=== PATIENT | female | born 1955 | race Caucasian/White ===

== ENCOUNTER 2018-07-28 14:47 | Outpatient (CLI) | payer OTHER | END 2018-07-28 14:48 | disposition home or self-care (01) | LOC: BICMAMMO 14:47 | PROVIDERS: ATTEND Obstetrics & Gynecology Gynecologic Oncology | DX: Z12.31 Encounter for screening mammogram for malignant neoplasm of breast (principal); Z80.3 Family history of malignant neoplasm of breast; Z85.42 Personal history of malignant neoplasm of other parts of uterus | CPT/HCPCS: 77063; 77067 ==

== ENCOUNTER 2018-08-06 09:32 | Outpatient (CLI) | payer OTHER ==
--- NOTE | 2018-08-06 11:34 | RAD ---
CHEST PA AND LATERAL: HISTORY: A 63-year-old female with a history of malignant neoplasm of the endometrium, cough. FINDINGS: The heart size is normal. The lungs are clear. No pneumonia, edema, or pleural effusion. IMPRESSION: No acute intrathoracic disease. No evidence for pneumonia. POS: [facility]
--- NOTE | 2018-08-06 11:35 | RAD ---
SKULL 4 VIEWS: HISTORY: A 63-year-old female with a history of skull deformity. FINDINGS: No evidence of an obvious osseous calvarial mass. The sella turcica is normal. The pineal gland is not adequately calcified for midline determination. IMPRESSION: Unremarkable 4 views skull. If there is persistent clinical concern, particularly for some type of p alpable finding, a followup CT scan might be considered. POS: [facility]
== END 2018-08-06 09:33 | disposition home or self-care (01) ==
LOC: BICRAD 09:32
PROVIDERS: ATTEND Obstetrics & Gynecology Gynecologic Oncology
DX: C54.1 Malignant neoplasm of endometrium (principal); M95.2 Other acquired deformity of head
CPT/HCPCS: 70260; 71046

== ENCOUNTER 2018-09-30 14:20 | Outpatient (CLI) | payer OTHER ==
--- NOTE | 2018-09-30 17:42 | CT ---
CT CHEST WITH IV CONTRAST CT ABDOMEN AND PELVIS WITH IV AND ORAL CONTRAST 09/30/18 HISTORY: Endometrial neoplasm. Increasing tumor markers. Neck pain and swelling. FINDINGS: At the left neck base, a lobular homogeneous soft tissue density mass just lateral to the left thyroi d lobe and posterior to the left internal jugular vein extend inferior to the medial left clavicle. The mass is 4.0 cm length x 3.5 cm depth. No other enlarged lymph nodes of the mediastinum are eviden t. At the liver dome, a heterogeneous low density mass is 2.9 cm oblique diameter on the coronal refo rmatted images. A the lexi hepatis, just above the pancreatic head, a somewhat ill-defined heterogen eous soft tissue density mass is 5.9 cm length x 3.5 cm width and involves the anterior margin of the inferior vena cava and posterior margin of the main portal vein. Enlarged lymph nodes are present th roughout the retroperitoneum, measuring up to 3.3 cm length just below the level of the left renal ve in. Enlarged aortocaval lymph nodes are present. Urinary bladder is decompressed. Degenerative change s lumbar spine. IMPRESSION: Multifocal metastatic disease involving the liver dome, the left lower neck, and the retroperitoneum as detailed above. For percutaneous biopsy, the left neck mass would be most accessible. POS: [facility]
== END 2018-09-30 14:21 | disposition home or self-care (01) ==
LOC: BICCT 14:20
DX: C54.1 Malignant neoplasm of endometrium (principal); C78.7 Secondary malignant neoplasm of liver and intrahepatic bile duct; C78.6 Secondary malignant neoplasm of retroperitoneum and peritoneum; C77.0 Secondary and unspecified malignant neoplasm of lymph nodes of head, face and neck
CPT/HCPCS: 71260; 74177; 82565

== ENCOUNTER 2018-10-19 16:02 | Emergency (ER) | payer OTHER ==
[2018-10-19 16:42] LABS: #Basophils 0.1 thou/uL (0.0-0.2); #Eosinphils 0.3 thou/uL (0.0-0.7); #Lymphocytes 2.8 thou/uL (1.20-3.40); #Monocytes 0.8 thou/uL (0.11-0.59); #Neutrophils 9.4 thou/uL (1.40-6.50); %Basophils 0.8 % (0.0-1.0); %Eosinophils 2.5 % (0.0-10.0); %Lymphocytes 20.8 % (21.0-51.0); %Monocytes 5.6 % (0.0-10.0); %Neutrophils 70.3 % (42.0-75.0); Hemoglobin 10.9 g/dL (12.0-16.0); Mean Corpuscular HGB CONC 31.2 g/dL (32.0-36.0); Mean Corpuscular Hemoglobin 25.7 pg (27.0-31.0); Mean Corpuscular Volume 82.4 fL (78.0-98.0); Mean Platelet Volume 8.6 fL (7.4-10.4); Platelet Count 473 thou/uL (130-400); RBC Distribution Width 14.2 % (11.5-14.5); Red Blood Cell (RBC) Count 4.23 mill/uL (4.20-5.40); White Blood Cell (WBC) Count 13.4 thou/uL (4.8-10.8)
[2018-10-19 17:09] LABS: ALT (SGPT) 10 U/L (8-55); AST (SGOT) 12 U/L (5-34); Albumin 3.9 g/dL (3.4-4.8); Alkaline Phosphatase 83 U/L (40-150); Anion Gap 18 mmol/L (10-20); BUN (Urea Nitrogen) 12 mg/dL (9.8-20.1); Bilirubin, Total 0.5 mg/dL (0.2-1.2); Calc. Creatinine Clearance 0 mL/min (70-130); Calcium 10.3 mg/dL (7.8-10.44); Carbon Dioxide 19 mmol/L (23-31); Chloride 101 mmol/L (98-107); Estimated GFR-MDRD 75; Globulin 4.6 g/dL (2.4-3.5); Glucose 222 mg/dL (80-115); Potassium 4.6 mmol/L (3.5-5.1); Protein, Total 8.5 g/dL (6.0-8.3); Sodium 133 mmol/L (136-145)
[2018-10-19] MEDS ORDERED: Ketorolac Tromethamine 30 MG/ML VIAL ONE (17:24)
[2018-10-19] MEDS ORDERED: Morphine 4 MG/ML VIAL ONE (17:24)
--- NOTE | 2018-10-19 18:16 | CT ---
CT ABDOMEN AND PELVIS WITH IV CONTRAST: 10/19/2018 HISTORY: Malignant neoplasm of the endometrium. History of hysterectomy and radiation. The patient has had l ower abdominal pain since one day ago. COMPARISON: 09/30/2018 FINDINGS: The visualized lung bases demonstrate minimal dependent atelectasis. No pulmonary nodular mass is se en. As noted on prior exam, there is a heterogeneous mass seen at the dome of the liver, which measures a pproximately 3.5 cm. Again noted at the lexi hepatis is an ill-defined, heterogeneous mass, again measuring 5.9 cm in gre atest dimensions. This mass abuts the anterior margin of the IVC and the posterior margin of the por tete vein and also abuts the pancreas, resulting in slight mass effect on the vascular structures in t his region. The portal vein is patent. Aortocaval lymph nodes are again seen with several enlarged lymph nodes seen at the level of the raulito l veins, with the largest lymph node seen in a retrocaval location, measuring approximately 1.9 cm. Additional mildly enlarged lymph nodes are seen in an aortocaval location, which are increased _. The spleen, bilateral adrenal glands, kidneys, and urinary bladder demonstrate a normal CT appearance . The uterus is not visualized, related to a prior hysterectomy. No free fluid or fluid collection is seen in the abdomen or pelvis. Loops of small bowel are normal in caliber. The appendix is normal in caliber. Degenerative changes are seen in the spine. There has been no interval change from the prior exam. IMPRESSION: 1. Metastatic disease with a mass in the dome of the liver, mass in the lexi hepatis, as well as ao rtocaval lymphadenopathy. 2. Hysterectomy. 3. CT abdomen and pelvis is stable compared to prior study on 09/30/2018. POS: [facility]
== END 2018-10-19 20:49 | disposition home or self-care (01) ==
LOC: ERS 16:02
DX: R10.31 Right lower quadrant pain (principal); Z79.899 Other long term (current) drug therapy
CPT/HCPCS: 74177; 80053; 83690; 85025; 93005; 96361; 96374; 96375; J1885; J2270

== ENCOUNTER 2018-10-23 13:19 | Emergency (ER) | payer OTHER ==
--- NOTE | 2018-10-23 15:59 | RAD ---
ONE VIEW CHEST AND 2 VIEWS ABDOMEN: HISTORY: Last bowel movement 1 week ago. FINDINGS: ONE VIEW CHEST: Normal cardiac silhouette. The lungs and pleural spaces are clear. No pneumothorax or osseous abnor malities. TWO VIEWS ABDOMEN: Nonspecific bowel gas pattern. There is some fecal material throughout the colon. No definite radio graphic evidence of constipation. No evidence of bowel distention or dilatation. No differential ai r fluid levels. No pneumoperitoneum. There appears to be pseudoarthrosis of the left and right L5 alae with the sacrum. IMPRESSION: 1. No acute cardiopulmonary process. 2. Nonspecific bowel gas pattern. POS: [facility]
[2018-10-23] MEDS ORDERED: Lidocaine Viscous Sol 2% 15 ml UD Cup ONE (16:48)
== END 2018-10-23 19:24 | disposition home or self-care (01) ==
LOC: ERS 13:19
DX: K59.00 Constipation, unspecified (principal); E11.9 Type 2 diabetes mellitus without complications; I10 Essential (primary) hypertension
CPT/HCPCS: 74022

== ENCOUNTER 2018-11-05 12:09 | Day surgery (SDC) | payer OTHER ==
[2018-11-04 15:12] VITALS: BMI 30.7
[2018-11-05] MEDS ORDERED: Lidocaine 1% PF 5 ML VIAL ONE (12:36)
[2018-11-05 13:15] VITALS: BP 126/56; TEMP 98.2
--- NOTE | 2018-11-05 15:59 | ULT ---
SONOGRAPHIC GUIDED LEFT NECK MASS BIOPSY: HISTORY: Endometrial carcinoma. Metastatic disease. Left neck mass. FINDINGS: After explaining the procedure and answering all questions, the lobular soft tissue density mass at t he base of the left neck was visualized. Sterile technique, buffered local anesthesia, sonographic g uidance, and a lateral approach were used to carefully advance an 18 gauge core biopsy needle to the level of the mass. Two core biopsy specimens were obtained and sent to pathology for evaluation. Po stprocedure imaging shows no evidence of complication. The patient tolerated the procedure well and was dismissed in good condition. IMPRESSION: Technically successful sonographic-guided biopsy left neck mass. Pathology is pending. POS: [facility]
== END 2018-11-05 14:00 | disposition home or self-care (01) ==
LOC: ULT 12:09
PROVIDERS: ATTEND Obstetrics & Gynecology Gynecologic Oncology
PROC: 07D23ZX Extraction of Left Neck Lymphatic, Percutaneous Approach, Diagnostic (ICD-10-PCS; principal; 2018-11-05)
DX: C77.0 Secondary and unspecified malignant neoplasm of lymph nodes of head, face and neck (principal); C54.1 Malignant neoplasm of endometrium; Z79.84 Long term (current) use of oral hypoglycemic drugs; Z79.899 Other long term (current) drug therapy
CPT/HCPCS: 38505; 88305; 88341; 88342; 88360; J2001

== ENCOUNTER 2018-11-23 13:41 | Outpatient (CLI) | payer OTHER ==
--- NOTE | 2018-11-23 15:52 | ULT ---
LEFT UPPER EXTREMITY VENOUS ULTRASOUND: Date: 11/23/18 HISTORY: Left upper extremity swelling. History of uterine cancer. TECHNIQUE: Multiplanar Garcia scale and color Doppler images were obtained in a left upper extremity venous ultras ound. Spectral analysis of the Doppler waveforms were performed. FINDINGS: There is a very large lymph node in the left neck, which was seen during the examination. This measur es 4.3 cm in greatest dimension. The left internal jugular vein was difficult to visualize. Adjacent to the carotid artery, there was a heterogeneous region which was in the region of the internal jugular vein. This likely represents t hrombus within the left internal jugular vein. A small amount of flow was seen in this region. The le ft subclavian vein also demonstrated visible thrombus. The left axillary and brachial veins show no e vidence of visualized thrombus and have normal flow. The basilic and cephalic veins show no obvious t hrombus. IMPRESSION: 1. Left IJ and subclavian vein deep venous thrombosis. 2. Large left lower cervical lymph node. POS: [facility]
== END 2018-11-23 13:42 | disposition home or self-care (01) ==
LOC: BICULT 13:41
PROVIDERS: ATTEND Surgery
DX: M79.89 Other specified soft tissue disorders (principal); I82.622 Acute embolism and thrombosis of deep veins of left upper extremity

== ENCOUNTER 2018-12-08 07:07 | Day surgery (SDC) | payer OTHER ==
[2018-12-03 10:02] VITALS: BMI 45.8
[2018-12-08 08:39] LABS: #Basophils 0.1 thou/uL (0.0-0.2); #Eosinphils 0.1 thou/uL (0.0-0.7); #Lymphocytes 4.1 thou/uL (1.20-3.40); #Monocytes 0.8 thou/uL (0.11-0.59); #Neutrophils 8.9 thou/uL (1.40-6.50); %Basophils 0.5 % (0.0-1.0); %Eosinophils 0.5 % (0.0-10.0); %Lymphocytes 29.1 % (21.0-51.0); %Neutrophils 63.9 % (42.0-75.0); Hemoglobin 9.9 g/dL (12.0-16.0); Mean Corpuscular Hemoglobin 26.6 pg (27.0-31.0); Mean Corpuscular Volume 82.9 fL (78.0-98.0); Mean Platelet Volume 7.8 fL (7.4-10.4); Platelet Count 423 thou/uL (130-400); RBC Distribution Width 15.8 % (11.5-14.5); Red Blood Cell (RBC) Count 3.74 mill/uL (4.20-5.40)
[2018-12-08 09:05] LABS: Anion Gap 19 mmol/L (10-20); BUN (Urea Nitrogen) 11 mg/dL (9.8-20.1); Calc. Creatinine Clearance 125 mL/min (70-130); Calcium 10.2 mg/dL (7.8-10.44); Carbon Dioxide 18 mmol/L (23-31); Chloride 102 mmol/L (98-107); Estimated GFR-MDRD 65; Glucose 197 mg/dL (80-115); Sodium 135 mmol/L (136-145)
[2018-12-08] MEDS ORDERED: Fentanyl 100 MCG/2 ML VIAL ONE (09:33)
[2018-12-08] MEDS ORDERED: PROPOFOL 40 ML ONE (09:33)
[2018-12-08] MEDS ORDERED: Lidocaine 2% PF 5 ML VIAL ONE ×2 (09:40)
[2018-12-08] MEDS ORDERED: Bupivacaine HCl 0.5%/Epinephrine 1:200,000/PF 30 ml Vial ONE (09:40)
[2018-12-08] MEDS ORDERED: Lidocaine 2% 11 ML SYR ONE (09:40)
--- NOTE | 2018-12-08 14:00 | RAD ---
CHEST ONE VIEW: HISTORY: Mediport placement. COMPARISON: Chest radiograph from October 2018. FINDINGS: A right IJ Port-A-Cath is in place with the tip at the mid SVC. No pneumothorax. The lungs are bobby r. The cardiac silhouette and mediastinal contours are within normal limits. IMPRESSION: Uncomplicated placement of port catheter. POS: [facility]
[2018-12-08] MEDS ORDERED: Lidocaine 1% PF 5 ML VIAL ONE (14:29)
[2018-12-08] MEDS ORDERED: PROPOFOL 200 MG/20 ML VIAL ONE (14:29)
[2018-12-08] MEDS ORDERED: Ondansetron PF 4 MG/2 ML Vial ONE (14:29)
--- NOTE | 2018-12-11 15:24 | PDOC.OP ---
Operative Note - Operative Note Operative Note: PROCEDURE: Right internal jugular MediPort placement with ultrasound and fluoroscopic guidance SURGEON: Venessa Shen M.D. DATE OF PROCEDURE: 12/11/2018 PREOPERATIVE DIAGNOSIS: Metastatic uterine cancer POSTOPERATIVE DIAGNOSIS: Metastatic uterine cancer HISTORY: Patient is diagnosed with metastatic uterine cancer. Chemotherapy has been recommended and the oncologist has requested MediPort placement for this. OPERATIVE PROCEDURE IN DETAIL: After informed consent was obtained and appropriate preoperative antibiotics were administered, the patient was taken to the operating room and placed in supine position and monitored anesthesia care was administered. The patient was then placed in Trendelenburg position and the right internal jugular vein was identified using a sterile ultrasound probe. This was accessed easily on the first attempt with excellent flow of dark venous non-pulsatile blood. A wire threaded easily and was confirmed to be in the superior vena cava by fluoroscopy. Additional local anesthesia was infused to the skin and subcutaneous tissues of the right chest and neck. A skin incision was made over the right pectoral muscle and a subcutaneous pocket developed inferiorly. A Mediport was obtained and confirmed to fit in the subcutaneous pocket. This was secured inferiorly to the pectoralis fascia with a Prolene suture, which was clamped, but not tied. The tubing was tunneled from the right chest incision to the right IJ access site. The dilator and sheath were then placed over the wire and the dilator and wire removed leaving the sheath in place. The clamped MediPort tubing was tunneled through the sheath, which was then split and removed leaving the MediPort tubing in place. The tubing was adjusted until the tip was confirmed by fluoroscopy to be in the superior vena cava just above the atrium. The tubing was clamped at the skin level and cut and the tubing secured to the port, which was then placed in the subcutaneous pocket. The previously placed suture was secured and two additional sutures were placed to fix the port in place within the pocket. The port was aspirated with the Trivedi needle and had excellent flow of dark venous non-pulsatile blood and easily flushed without resistance. The subcutaneous tissues were closed with a running Monocryl suture, following which the skin was closed with a running subcuticular Monocryl suture. Dermabond dressings were placed and the hub was again accessed through the skin and confirmed to easily aspirate and easily flush. The course of the catheter was confirmed by fluoroscopy to be smooth with the tip appropriately located in the superior vena cava. The patient was taken her back to the day stay unit in good condition. Estimated blood loss minimal. There were no complications. There were no specimens.
== END 2018-12-08 12:00 | disposition home or self-care (01) ==
LOC: SDC 07:07
PROVIDERS: ATTEND Surgery
PROC: 0JH63WZ Insertion of Totally Implantable Vascular Access Device into Chest Subcutaneous Tissue and Fascia, Percutaneous Approach (ICD-10-PCS; principal; 2018-12-08)
DX: C54.1 Malignant neoplasm of endometrium (principal); C77.0 Secondary and unspecified malignant neoplasm of lymph nodes of head, face and neck; C78.6 Secondary malignant neoplasm of retroperitoneum and peritoneum; C78.7 Secondary malignant neoplasm of liver and intrahepatic bile duct; E78.00 Pure hypercholesterolemia, unspecified; I10 Essential (primary) hypertension; E11.9 Type 2 diabetes mellitus without complications; Z79.01 Long term (current) use of anticoagulants; Z79.84 Long term (current) use of oral hypoglycemic drugs; Z79.899 Other long term (current) drug therapy
CPT/HCPCS: 36415; 71045; 80048; 85025; C1788; J0670; J1642; J2001; J2405; J2704; J3010

== ENCOUNTER 2018-12-12 19:48 | Emergency (ER) | payer OTHER ==
--- NOTE | 2018-12-12 20:34 | RAD ---
CHEST ONE VIEW: 12/12/18 COMPARISON: 12/08/18. HISTORY: Tachycardia. FINDINGS: Stable right sided Mediport catheter. Normal cardiac silhouette. Pulmonary vessels and hilum are norm al. Costophrenic angles are clear. No masses or consolidation. No pneumothorax or osseous abnormaliti es. IMPRESSION: No acute cardiopulmonary process. POS: [facility]
[2018-12-12 21:07] LABS: ALT (SGPT) 17 U/L (8-55); AST (SGOT) 15 U/L (5-34); Albumin 3.8 g/dL (3.4-4.8); Alkaline Phosphatase 117 U/L (40-150); Anion Gap 16 mmol/L (10-20); BUN (Urea Nitrogen) 21 mg/dL (9.8-20.1); Bilirubin, Total 0.5 mg/dL (0.2-1.2); CK (CPK) 26 U/L (29-168); Calc. Creatinine Clearance 0 mL/min (70-130); Calcium 9.8 mg/dL (7.8-10.44); Carbon Dioxide 20 mmol/L (23-31); Chloride 98 mmol/L (98-107); Estimated GFR-MDRD 55; Globulin 3.9 g/dL (2.4-3.5); Glucose 344 mg/dL (80-115); Potassium 3.7 mmol/L (3.5-5.1); Protein, Total 7.7 g/dL (6.0-8.3); Sodium 130 mmol/L (136-145)
== END 2018-12-13 00:11 | disposition home or self-care (01) ==
LOC: ERS 19:48
DX: E86.0 Dehydration (principal); T45.1X5A Adverse effect of antineoplastic and immunosuppressive drugs, initial encounter; C55 Malignant neoplasm of uterus, part unspecified; E11.9 Type 2 diabetes mellitus without complications; I10 Essential (primary) hypertension; Z79.899 Other long term (current) drug therapy; Z79.01 Long term (current) use of anticoagulants
CPT/HCPCS: 71045; 80053; 82550; 84484; 93005; 94760; 96360; J1642

== ENCOUNTER 2019-01-17 09:34 | Observation (INO) | payer OTHER ==
[2019-01-17] MEDS ORDERED: Adacel (T-DAP) 0.5 ML SYRINGE ONE (09:56)
--- NOTE | 2019-01-17 10:37 | RAD ---
AP PELVIS: Date: 01/17/19 HISTORY: Fall with pelvic pain. FINDINGS: Pelvic ring is intact, without evidence of fracture. There is an avulsive type fracture of the greate r trochanter. I do not see a femoral neck or intertrochanteric fracture. Left hip is normal. IMPRESSION: Avulsion fracture of the greater trochanter of the right hip. POS: [facility]
--- NOTE | 2019-01-17 10:41 | RAD ---
RIGHT HIP 2 VIEWS: Date: 01/17/19 HISTORY: Fall in tub. FINDINGS: There is a fracture of the greater trochanter of the right hip. This appears to be an avulsive injury . I do not see a definite intertrochanteric or femoral neck fracture. IMPRESSION: Avulsion fracture of greater trochanter of the right hip. I do not see a definitive intertrochanteric fracture, although there is some subtle sclerosis extending in the intertrochanteric region, and for this reason, I would recommend a CT for more complete assessment to exclude the possibility of an as sociated intertrochanteric fracture. POS: [facility]
[2019-01-17] MEDS ORDERED: Ondansetron PF 4 MG/2 ML Vial ONE (10:47)
[2019-01-17] MEDS ORDERED: Morphine 4 MG/ML VIAL ONE (10:47)
[2019-01-17 10:54] LABS: #Lymphocytes 1.8 thou/uL (1.20-3.40); #Monocytes 0.6 thou/uL (0.11-0.59); #Neutrophils 7.6 thou/uL (1.40-6.50); %Basophils 0.4 % (0.0-1.0); %Eosinophils 0.4 % (0.0-10.0); %Lymphocytes 18.2 % (21.0-51.0); %Monocytes 5.9 % (0.0-10.0); %Neutrophils 75.1 % (42.0-75.0); Hemoglobin 9.1 g/dL (12.0-16.0); Mean Corpuscular HGB CONC 33.3 g/dL (32.0-36.0); Mean Corpuscular Hemoglobin 29.5 pg (27.0-31.0); Mean Corpuscular Volume 88.4 fL (78.0-98.0); Mean Platelet Volume 8.2 fL (7.4-10.4); Platelet Count 279 thou/uL (130-400); RBC Distribution Width 18.9 % (11.5-14.5); Red Blood Cell (RBC) Count 3.08 mill/uL (4.20-5.40); White Blood Cell (WBC) Count 10.1 thou/uL (4.8-10.8)
[2019-01-17 11:07] LABS: INR-International Normal Ratio 1.5; PTT 36.8 SEC (22.9-36.1); Prothrombin Time 17.8 SEC (12.0-14.7)
[2019-01-17 11:14] LABS: AST (SGOT) 17 U/L (5-34); Albumin 3.8 g/dL (3.4-4.8); Alkaline Phosphatase 85 U/L (40-150); Anion Gap 14 mmol/L (10-20); BUN (Urea Nitrogen) 11 mg/dL (9.8-20.1); Bilirubin, Total 0.5 mg/dL (0.2-1.2); Calc. Creatinine Clearance 0 mL/min (70-130); Calcium 10.1 mg/dL (7.8-10.44); Carbon Dioxide 20 mmol/L (23-31); Chloride 102 mmol/L (98-107); Estimated GFR-MDRD 71; Globulin 3.8 g/dL (2.4-3.5); Glucose 202 mg/dL (80-115); Potassium 4.3 mmol/L (3.5-5.1); Protein, Total 7.6 g/dL (6.0-8.3); Sodium 132 mmol/L (136-145)
[2019-01-17 11:15] LABS: ALT (SGPT) 17 U/L (8-55); Anisocytosis SLIGHT = 6-15 cells (100X) (0-5/hpf); MDiff Complete? YES
[2019-01-17] MEDS ORDERED: Ondansetron ODT 4 MG TAB SL PRN (17:40)
[2019-01-17] MEDS ORDERED: Ondansetron PF 4 MG/2 ML Vial IVP PRN (17:40)
[2019-01-17] MEDS: Morphine 4 MG/ML VIAL SLOW IVP PRN ×2 (18:23→23:20)
[2019-01-17] MEDS: HYDROcodone/Acetaminophen 7.5/325 mg Tablet PO PRN (20:41)
[2019-01-17] MEDS: Sodium Chloride 0.9% 1,000 ML IV SCH (20:46)
[2019-01-17 20:58] VITALS: BMI 28.8
--- NOTE | 2019-01-17 22:33 | HP ---
CHIEF COMPLAINT: Right hip pain. HISTORY OF PRESENT ILLNESS: Ms. Louis is a 63-year-old female who slipped and fell in the shower this morning. Denies hitting her head or any loss of consciousness. The patient states that she was unable to ambulate out of the shower. Reports having right hip pain. Denies neck or back pain. Denies having any shortness of breath, dizziness, or chest pain prior to fall. EMS gave her 2 mg of morphine, which helped. She also did have a laceration to her right elbow, but no other significant pain to the right arm. On x-ray of the hip, it showed an avulsion fracture of the greater trochanter of the right hip. Radiologist recommended a CT scan, which was performed and verified the avulsion type fracture of the greater trochanter on the right hip. Orthopedics was consulted and it is nonsurgical and stated the patient could go home if able to ambulate, which she was not. Inpatient rehab was considered, they were contacted, but state they could not admit her today, so she will be admitted to the observation unit for pain control and rehab assessment. PAST MEDICAL HISTORY: Pertinent for uterine cancer with metastasis. She had surgery to remove, hysterectomy initially multiple years ago and then in 08/2018 it showed up in her liver and she has started chemotherapy. The last chemotherapy was [address] Melendez is her oncologist. Also has a history of diabetes type 2 and hypertension. PAST SURGICAL HISTORY: Hysterectomy and has had D and C in the past. PSYCHIATRIC HISTORY: None. SOCIAL HISTORY: The patient denies any alcohol or drug use. Has no smoking history. ALLERGIES: NONE. CURRENT MEDICATIONS: 1. Januvia 100 mg p.o. daily. 2. Glimepiride 8 mg once a day. 3. Megace 40 mg b.i.d. 4. Claritin 10 mg once a day. 5. Amlodipine 5 mg once a day. 6. Colace 100 mg three times a day. 7. Multivitamin 1 tablet daily. 8. Pepcid 20 mg once a day. 9. Atorvastatin 40 mg once a day. 10. Xarelto 20 mg b.i.d. REVIEW OF SYSTEMS: The patient does report pain to right hip. Reports some mild throbbing to right elbow. Does have a laceration to the right elbow. All other systems reviewed and are negative unless mentioned in the HPI. PHYSICAL EXAMINATION: VITAL SIGNS: Blood pressure 136/67, pulse is 104, respirations 16, temperature is 98.8, and pulse ox is 96% on room air. Pain currently is at 2/10. CONSTITUTIONAL: The patient appears in no distress, is alert and oriented to person, place, and time. HEENT: Head is atraumatic and normocephalic. Eyelids are normal to inspection. Pupils are equally round and reactive to light. Extraocular muscles are intact. ENT; mouth exam is normal. Mucous membranes are moist. NECK: Normal range of motion. Trachea is midline. RESPIRATOR/CHEST: Breath sounds are clear. No findings of any respiratory distress. CARDIOVASCULAR: Regular heart rate and rhythm. Heart sounds are normal. ABDOMEN: Nontender. Bowel sounds are heard. BACK: Normal inspection. Normal range of motion. EXTREMITIES: Upper extremity; 1.5 superficial linear laceration to right posterior elbow. Normal range of motion. Motor strength is normal. Sensation intact. Radial pulses are equal bilaterally. Lower extremity; right hip tenderness especially over greater right trochanter. No shortening or external/internal rotation of the right leg. Range of motion is limited to pain from pain on the right leg. Motor strength is normal. Sensation intact. Pedal pulses are equal bilaterally. NEUROLOGIC: The patient is oriented to person, place, and time. No focal motor or sensory deficits. SKIN: Dry, normal in color. There is a laceration to right elbow as described above. PSYCHIATRIC: The patient has a normal affect. IMAGING STUDIES: EKG in the ER shows a normal sinus rhythm, beats per minute 89, conduction normal, ST segments normal, and T-waves are normal. RADIOLOGY INTERPRETATION: Pelvis CT shows an avulsion type fracture of the greater trochanter on the right hip. Hip x-ray shows same as above. PERTINENT LABORATORY DATA: White blood cell count is 10.1, hemoglobin is 9.1, hematocrit is 27.2, and platelet count is 279. PT is 17.8, INR is 1.5, and APTT is 36.8. Sodium is 132, potassium 4.3, chloride is 102, carbon dioxide 20, gap is 14, BUN is 11, creatinine is 0.81, estimated GFR is 71, and glucose is 202. Liver enzymes are unremarkable. ASSESSMENT AND PLAN: 1. Avulsion type fracture to right greater trochanter, which is inoperable per Orthopedics. We will have PT/OT assess rehab screening, ordered medication for pain, any nausea. 2. Diabetes. We will restart home medication. Add a sliding scale and Accu-Cheks before meals and at bedtime. 3. Hypertension. We will continue home medications. We will trend. 4. Chronic anticoagulation. We will restart home medication. 5. Deep venous thrombosis and gastrointestinal prophylaxis will be started. Job ID: [id number]
[2019-01-17] MEDS ORDERED: Amlodipine 5 MG TAB PO SCH (23:00)
[2019-01-17] MEDS ORDERED: Polyethylene Glycol 3350 17 GM Packet PO SCH (23:00)
[2019-01-17] MEDS ORDERED: Atorvastatin Calcium 40 MG TAB PO SCH (23:00)
[2019-01-17] MEDS ORDERED: Dextrose 5% in Water 1,000 ML IV PRN (23:47)
[2019-01-17] MEDS ORDERED: Dextrose 50% Abboject 50 ML SYRINGE SLOW IVP PRN (23:47)
[2019-01-18] MEDS: Sodium Chloride 0.9% 1,000 ML IV SCH (02:37)
[2019-01-18] MEDS: HYDROcodone/Acetaminophen 7.5/325 mg Tablet PO PRN ×3 (04:26→19:05)
[2019-01-18] MEDS: HumaLOG 300 UNITS/3 ML VIAL SC PRN ×3 (05:39→16:36)
[2019-01-18] MEDS: Famotidine 20 MG TAB PO SCH (08:17)
[2019-01-18] MEDS: Docusate 100 MG CAP PO SCH (08:17)
[2019-01-18] MEDS: Rivaroxaban 15 MG TAB PO SCH (08:17)
[2019-01-18] MEDS: Glimepiride 4 MG TAB PO SCH (08:18)
--- NOTE | 2019-01-18 09:48 | PDOC.PN ---
- Subjective Encounter Start Date: 01/18/19 Encounter Start Time: 09:47 Patient lying in bed, she reports pain controlled at the moment. She is in agreement with rehab disposition. She denies chest pain, shortness of breath or abdominal pain. She denies BM, but she continues on bowel regimen. - Objective MAR Reviewed: Yes Vital Signs & Weight: Vital Signs (12 hours) Temp Pulse Resp BP BP Pulse Ox 01/18/19 07:36 97.7 F 113 H 18 145/79 H 98 01/18/19 05:35 97.8 F 99 20 136/82 96 01/17/19 23:28 97.7 F 96 12 133/75 98 01/17/19 23:20 90 128/76 Weight Weight 168 lb 3 oz Result Diagrams: 01/17/19 10:41 01/17/19 10:41 Additional Labs: Accuchecks 01/18/19 01/17/19 05:37 19:58 POC Glucose 190 H 219 H Radiology Reviewed by me: Yes Phys Exam - Physical Examination Constitutional: NAD HEENT: PERRLA, moist MMs, oral pharynx no lesions Neck: supple Respiratory: no wheezing, clear to auscultation bilateral Cardiovascular: RRR, no significant murmur Gastrointestinal: soft, non-tender, no distention, positive bowel sounds Musculoskeletal: no edema, pulses present Tenderness to palpation over right hip, dressing applied to right elbow Neurological: non-focal, moves all 4 limbs Lymphatic: no nodes Psychiatric: normal affect, A&O x 3 Skin: no rash, cap refill <2 seconds Dx/Plan (1) Closed avulsion fracture of greater trochanter of right femur Code(s): S72.111A - DISP FX OF GREATER TROCHANTER OF RIGHT FEMUR, INIT Status : Acute (2) Diabetes mellitus Code(s): E11.9 - TYPE 2 DIABETES MELLITUS WITHOUT COMPLICATIONS Status: Acute (3) Hypertension Code(s): I10 - ESSENTIAL (PRIMARY) HYPERTENSION Status: Acute (4) History of uterine cancer Code(s): Z85.42 - PERSONAL HISTORY OF MALIGNANT NEOPLASM OF OTH PRT UTERUS Status: Acute - Plan cont current plan of care, PT/OT * Continue pain management * Continue home medications * Bowel regimen * PT/OT * Await placement to inpatient rehab * All patient questions answered
--- NOTE | 2019-01-18 10:40 | CON ---
DATE OF CONSULTATION: CHIEF COMPLAINT: Right hip pain. HISTORY OF PRESENT ILLNESS: Ms. Louis is a 63-year-old female, who fell in her bathtub at home. She lost her balance. She slipped. She did not lose consciousness. She is on active chemotherapy for cancer treatment and has been very fatigued lately. X-rays were obtained of the hip, which demonstrated a greater trochanter avulsion type fracture. This did not extend through the trochanteric region. CT scan confirmed this. She has been admitted for pain control and to be placed to rehab. PAST MEDICAL HISTORY: Uterine cancer with metastasis, currently on chemotherapy and type 2 diabetes. PAST SURGICAL HISTORY: Hysterectomy and D and C. PSYCHIATRIC HISTORY: Negative. SOCIAL HISTORY: The patient denies alcohol, tobacco, or drug use. ALLERGIES: NONE. REVIEW OF SYSTEMS: Positive for right hip pain with any movement. Otherwise, negative 10-point review of systems. PHYSICAL EXAMINATION: VITAL SIGNS: Temperature is 97.7, pulse is 113, and blood pressure is 145/79. GENERAL: She is alert and oriented, in no apparent distress. RESPIRATORY: Breathing comfortably. ABDOMEN: Soft, nontender, and nondistended. MUSCULOSKELETAL: The patient's right lower extremity has tenderness to palpation of the trochanter. She has pain with motion. She is neurovascularly intact distally. She is able to flex and extend her foot and ankle. Palpable pulses. DIAGNOSTIC DATA: Images, x-rays, and CT scan of the right hip demonstrate a greater trochanteric avulsion fracture. This does not extend through the intertrochanteric region. IMPRESSION: Right greater trochanteric avulsion fracture. PLAN: At this point, the patient can weight bear as tolerated, but will likely need a walker and assistance in the beginning. She will have significant pain for the next 1 to 2 weeks until this starts to heal. She can mobilize out of bed. She will likely need to go to rehab for care until her pain subsides. I would like to see her back in the clinic in approximately 3 weeks for x-ray to evaluate healing. Job ID: [id number]
--- NOTE | 2019-01-18 11:00 | CT ---
CT PELVIS PERFORMED WITH CONTRAST ENHANCEMENT: Date: 01/17/19 HISTORY: Fall with right hip pain. FINDINGS: Bones appear demineralized. The pelvic ring appears intact. The fracture of the right hip is an avulsive-type injury of the greater trochanter. It does not exten d into the intertrochanteric region or femoral neck. IMPRESSION: Avulsion-type fracture of the greater trochanter of the right hip. POS: [facility]
--- NOTE | 2019-01-18 12:00 | PRG ---
DATE OF SERVICE: 01/18/2019 SUBJECTIVE: The patient is doing well. She says she has very minimal pain associated with her hips and lungs. She is lying in bed. Asked some questions regarding her cancer treatment followup. She says she is due for CT and is due for chemotherapy again on . OBJECTIVE: VITAL SIGNS: Temperature 98.3, pulse 102, respirations 20, O2 saturation 98% on room air, and BP 148/81. GENERAL APPEARANCE: Age-appropriate female, in no distress. She has alopecia. HEART: Tachycardic without murmur. LUNGS: Clear bilaterally with no wheeze or rales. ABDOMEN: Soft, nontender, and nondistended. EXTREMITIES: No edema. LABORATORY DATA: Blood sugar is 190 to 206. IMPRESSION AND PLAN: 1. Right trochanter avulsion fracture, this is a nonoperable issue, and the patient has inability to move her leg well or ambulate well. Continuing to manage pain and working on getting her some rehab. 2. Uterine cancer. I will need to try to talk to Dr. Melendez today to see if we need to get a CT scan while she is here or if they can possibly alter her upcoming chemotherapy on as the patient reports it makes her extremely fatigued and may interfere with her ability to rehab adequately. 3. Diabetes mellitus, adequate control. 4. Hypertension, well controlled. 5. Tachycardia. We will repeat some labs today. I am not exactly sure why she would be significantly tachycardic. 6. History of left upper extremity deep venous thrombosis. Continue with Xarelto. 7. History of hyperlipidemia. Continue with statin. Job ID: [id number]
[2019-01-18 12:35] LABS: #Eosinphils 0.1 thou/uL (0.0-0.7); #Monocytes 0.8 thou/uL (0.11-0.59); #Neutrophils 6.9 thou/uL (1.40-6.50); %Basophils 0.4 % (0.0-1.0); %Eosinophils 0.6 % (0.0-10.0); %Lymphocytes 20.1 % (21.0-51.0); %Monocytes 8.2 % (0.0-10.0); %Neutrophils 70.8 % (42.0-75.0); Hemoglobin 9.1 g/dL (12.0-16.0); Mean Corpuscular HGB CONC 32.9 g/dL (32.0-36.0); Mean Corpuscular Hemoglobin 29.6 pg (27.0-31.0); Mean Corpuscular Volume 89.8 fL (78.0-98.0); Platelet Count 285 thou/uL (130-400); RBC Distribution Width 19.1 % (11.5-14.5); Red Blood Cell (RBC) Count 3.08 mill/uL (4.20-5.40); White Blood Cell (WBC) Count 9.8 thou/uL (4.8-10.8)
[2019-01-18 12:46] LABS: Anion Gap 12 mmol/L (10-20); BUN (Urea Nitrogen) 10 mg/dL (9.8-20.1); Calc. Creatinine Clearance 90 mL/min (70-130); Calcium 9.6 mg/dL (7.8-10.44); Carbon Dioxide 23 mmol/L (23-31); Chloride 102 mmol/L (98-107); Estimated GFR-MDRD 76; Glucose 194 mg/dL (80-115); Sodium 133 mmol/L (136-145)
[2019-01-18] MEDS ORDERED: Loratadine 10 MG TAB PO SCH (15:45)
[2019-01-18] MEDS: Atorvastatin Calcium 40 MG TAB PO SCH (20:37)
[2019-01-18] MEDS: Amlodipine 5 MG TAB PO SCH (20:38)
[2019-01-18] MEDS: Polyethylene Glycol 3350 17 GM Packet PO SCH (20:38)
[2019-01-19] MEDS: HYDROcodone/Acetaminophen 7.5/325 mg Tablet PO PRN ×4 (01:14→19:51)
[2019-01-19] MEDS: Docusate 100 MG CAP PO SCH (08:00)
[2019-01-19] MEDS: Famotidine 20 MG TAB PO SCH (08:00)
[2019-01-19] MEDS: Loratadine 10 MG TAB PO SCH (08:00)
[2019-01-19] MEDS: Rivaroxaban 15 MG TAB PO SCH (08:01)
[2019-01-19] MEDS: Glimepiride 4 MG TAB PO SCH (08:39)
[2019-01-19 10:01] LABS: #Eosinphils 0.1 thou/uL (0.0-0.7); #Lymphocytes 3.3 thou/uL (1.20-3.40); #Monocytes 0.9 thou/uL (0.11-0.59); #Neutrophils 8.4 thou/uL (1.40-6.50); %Basophils 0.4 % (0.0-1.0); %Eosinophils 0.4 % (0.0-10.0); %Lymphocytes 25.9 % (21.0-51.0); %Monocytes 6.8 % (0.0-10.0); %Neutrophils 66.5 % (42.0-75.0); Hemoglobin 9.1 g/dL (12.0-16.0); Mean Corpuscular HGB CONC 32.9 g/dL (32.0-36.0); Mean Corpuscular Hemoglobin 29.8 pg (27.0-31.0); Mean Corpuscular Volume 90.7 fL (78.0-98.0); Mean Platelet Volume 8.1 fL (7.4-10.4); Platelet Count 318 thou/uL (130-400); RBC Distribution Width 18.8 % (11.5-14.5); Red Blood Cell (RBC) Count 3.04 mill/uL (4.20-5.40); White Blood Cell (WBC) Count 12.6 thou/uL (4.8-10.8)
--- NOTE | 2019-01-19 10:13 | PRG ---
DATE OF SERVICE: SUBJECTIVE: The patient is up with physical therapy this morning. Still having some discomfort in her hip. She is able to do a little bit of weightbearing, but with some discomfort. She also says she feels a bit lightheaded when she goes from the sitting to standing. She does report that she has had some tachycardia for several months that has been stable. Reports it started actually prior to her chemotherapy treatments. She is eating and drinking well. OBJECTIVE: VITAL SIGNS: Temperature 98.3, pulse 101, respirations 18, O2 saturation 97% on room air, and blood pressure 131/77. GENERAL APPEARANCE: Age-appropriate female, in no distress. She is awake, alert, oriented, pleasant, and cooperative. HEENT: PERRL. No acute lesions. HEART: Regular, tachycardic. No murmurs. LUNGS: Clear bilaterally with no wheezes or rales. ABDOMEN: Soft, nontender, and nondistended. EXTREMITIES: No cyanosis, clubbing, or edema. LABORATORY DATA: Blood sugars 164 to 212. IMPRESSION AND PLAN: 1. Right trochanteric avulsion fracture. CT scan shows some soft tissue edema, possibly some bruising around that area. The patient is nonsurgical, but is going to require some rehab before she can be functional, waiting on placement. Continue pain management. 2. Uterine cancer. Discussed with Cici Chavira, we will hold off on CT scan and postpone her chemotherapy until she can rehab better. 3. Diabetes mellitus, adequate control. 4. Hypertension, adequate control. 5. Tachycardia. Again, this appears to be more of a chronic situation for the patient. We will check some orthostatic vital signs, TSH, T4, and repeat H and H just to make sure this is not progressive bleeding or anemia given that she is on the anticoagulation. She does have a history of a left upper extremity deep venous thrombosis, but she does not have evidence of pulmonary embolism based on lack of chest pain, good sats, and the fact that she has been on anticoagulation. 6. Hyperlipidemia, stable. 7. History of left upper extremity deep venous thrombosis. Continue with Xarelto. Job ID: [id number]
[2019-01-19 11:28] LABS: Free T4 (Free Thyroxine) 1.15 ng/dL (0.70-1.48); Thyroid Stimulating Hormone 2.4277 uIU/mL (0.35-4.94)
[2019-01-19] MEDS: HumaLOG 300 UNITS/3 ML VIAL SC PRN ×2 (11:52→21:05)
[2019-01-19] MEDS: Amlodipine 5 MG TAB PO SCH (19:48)
[2019-01-19] MEDS: Atorvastatin Calcium 40 MG TAB PO SCH (19:48)
[2019-01-19] MEDS: Polyethylene Glycol 3350 17 GM Packet PO SCH (19:50)
--- NOTE | 2019-01-19 21:12 | EKG ---
Test Reason : Blood Pressure : / mmHG Vent. Rate : 098 BPM Atrial Rate : 098 BPM P-R Int : 154 ms QRS Dur : 076 ms QT Int : 330 ms P-R-T Axes : 067 052 053 degrees QTc Int : 421 ms Normal sinus rhythm Normal ECG When compared with ECG of 17-JAN-2019 10:27, (Unconfirmed) No significant change was found Confirmed by KEZIA WILD, . SDamari ([id number]) on 01/19/2019 9:12:08 PM Referred By: JODEE MEDRANO Confirmed By:DR. Patricia MAST MD
[2019-01-20] MEDS: HYDROcodone/Acetaminophen 7.5/325 mg Tablet PO PRN ×5 (03:55→23:46)
[2019-01-20] MEDS: Glimepiride 4 MG TAB PO SCH (08:08)
[2019-01-20] MEDS: Loratadine 10 MG TAB PO SCH (08:09)
[2019-01-20] MEDS: Docusate 100 MG CAP PO SCH (08:09)
[2019-01-20] MEDS: Rivaroxaban 15 MG TAB PO SCH (08:09)
[2019-01-20] MEDS: Famotidine 20 MG TAB PO SCH (08:09)
[2019-01-20] MEDS: Morphine 4 MG/ML VIAL SLOW IVP PRN (16:05)
[2019-01-20] MEDS: HumaLOG 300 UNITS/3 ML VIAL SC PRN (17:40)
[2019-01-20] MEDS: Amlodipine 5 MG TAB PO SCH (20:33)
[2019-01-20] MEDS: Polyethylene Glycol 3350 17 GM Packet PO SCH (20:33)
[2019-01-20] MEDS: Atorvastatin Calcium 40 MG TAB PO SCH (20:39)
[2019-01-21] MEDS: HYDROcodone/Acetaminophen 7.5/325 mg Tablet PO PRN ×3 (06:26→17:59)
[2019-01-21] MEDS: Docusate 100 MG CAP PO SCH (07:35)
[2019-01-21] MEDS: Famotidine 20 MG TAB PO SCH (07:35)
[2019-01-21] MEDS: Loratadine 10 MG TAB PO SCH (07:35)
[2019-01-21] MEDS: Glimepiride 4 MG TAB PO SCH (07:35)
[2019-01-21] MEDS: Rivaroxaban 15 MG TAB PO SCH (07:38)
--- NOTE | 2019-01-21 08:53 | PDOC.PN ---
- Subjective Encounter Start Date: 01/20/19 Encounter Start Time: 08:00 This is a delayed document in care for 01/20/2019. Patient was lying in bed, no complaints. She reported right hip pain mild at this time. She denied chest pain , palpitations, shortness of breath or abdominal pain. Awaiting placement. - Objective MAR Reviewed: Yes Vital Signs & Weight: Vital Signs (12 hours) Temp Pulse Resp BP BP BP Pulse Ox 01/21/19 07:28 98.4 F 111 H 20 143/77 H 96 01/21/19 05:25 130 H 97/66 01/21/19 05:20 112 H 114/75 01/21/19 05:15 112 H 135/79 Weight Admit Weight 168 lb 3 oz Weight 168 lb 3 oz I&O: 01/20/19 01/21/19 01/22/19 06:59 06:59 06:59 Intake Total 2039 Balance 2039 Result Diagrams: 01/19/19 09:46 01/18/19 12:05 Additional Labs: Accuchecks 01/21/19 01/20/19 01/20/19 05:24 19:49 16:52 POC Glucose 185 H 217 H 257 H 01/20/19 11:32 POC Glucose 244 H Radiology Reviewed by me: Yes Phys Exam - Physical Examination Constitutional: NAD HEENT: moist MMs, oral pharynx no lesions Neck: supple Respiratory: no wheezing, clear to auscultation bilateral Cardiovascular: RRR, no significant murmur Gastrointestinal: soft, positive bowel sounds Musculoskeletal: no edema, pulses present Mild tenderness to palpation in right hip Neurological: non-focal, moves all 4 limbs Lymphatic: no nodes Psychiatric: normal affect, A&O x 3 Skin: no rash, cap refill <2 seconds Dx/Plan (1) Closed avulsion fracture of greater trochanter of right femur Code(s): S72.111A - DISP FX OF GREATER TROCHANTER OF RIGHT FEMUR, INIT Status : Acute (2) Diabetes mellitus Code(s): E11.9 - TYPE 2 DIABETES MELLITUS WITHOUT COMPLICATIONS Status: Acute (3) Hypertension Code(s): I10 - ESSENTIAL (PRIMARY) HYPERTENSION Status: Acute (4) History of uterine cancer Code(s): Z85.42 - PERSONAL HISTORY OF MALIGNANT NEOPLASM OF OTH PRT UTERUS Status: Acute - Plan cont current plan of care, PT/OT * Continue home medications including Xarelto for DVT * PT/OT * TSH, T4 stable and within normal limits * Await placement * Pain management * Patient discharged once placement arranged.
[2019-01-21] MEDS: HumaLOG 300 UNITS/3 ML VIAL SC PRN ×2 (12:12→16:47)
--- NOTE | 2019-01-21 17:12 | PDOC.PN ---
- Subjective Encounter Start Date: 01/21/19 Encounter Start Time: 17:11 Patient lying in bed, she denies any complaints or overnight events. She denies chest pain, palpitations. Mild pain in hip, but improved today. She is able to do a little more each day with therapy. - Objective MAR Reviewed: Yes Vital Signs & Weight: Vital Signs (12 hours) Temp Pulse Resp BP BP BP Pulse Ox 01/21/19 07:28 98.4 F 111 H 20 143/77 H 96 01/21/19 05:25 130 H 97/66 01/21/19 05:20 112 H 114/75 01/21/19 05:15 112 H 135/79 Weight Admit Weight 168 lb 3 oz Weight 168 lb 3 oz I&O: 01/20/19 01/21/19 01/22/19 06:59 06:59 06:59 Intake Total 2039 Balance 2039 Result Diagrams: 01/19/19 09:46 01/18/19 12:05 Additional Labs: Accuchecks 01/21/19 01/21/19 01/21/19 16:29 11:32 05:24 POC Glucose 272 H 217 H 185 H 01/20/19 01/20/19 19:49 16:52 POC Glucose 217 H 257 H Radiology Reviewed by me: Yes Phys Exam - Physical Examination Constitutional: NAD HEENT: moist MMs, oral pharynx no lesions Neck: no nodes, supple Respiratory: no wheezing, clear to auscultation bilateral Cardiovascular: RRR, no significant murmur Gastrointestinal: soft, positive bowel sounds Musculoskeletal: no edema, pulses present Neurological: non-focal, moves all 4 limbs Psychiatric: normal affect, A&O x 3 Skin: no rash, cap refill <2 seconds Dx/Plan (1) Closed avulsion fracture of greater trochanter of right femur Code(s): S72.111A - DISP FX OF GREATER TROCHANTER OF RIGHT FEMUR, INIT Status : Acute (2) Diabetes mellitus Code(s): E11.9 - TYPE 2 DIABETES MELLITUS WITHOUT COMPLICATIONS Status: Acute (3) Hypertension Code(s): I10 - ESSENTIAL (PRIMARY) HYPERTENSION Status: Acute (4) History of uterine cancer Code(s): Z85.42 - PERSONAL HISTORY OF MALIGNANT NEOPLASM OF OTH PRT UTERUS Status: Acute - Plan cont current plan of care, PT/OT * Continue PT/OT * Case discussed with case management * Await placement * Hopeful for discharge in the next 24 hours. * If further delay is discharge, she may have to be discharged home if she continues to progress * She will follow up with ortho as outpatient along with oncologist
[2019-01-21] MEDS: Amlodipine 5 MG TAB PO SCH (20:31)
[2019-01-21] MEDS: Atorvastatin Calcium 40 MG TAB PO SCH (20:32)
[2019-01-21] MEDS: Polyethylene Glycol 3350 17 GM Packet PO SCH (20:33)
[2019-01-21] MEDS: Morphine 4 MG/ML VIAL SLOW IVP PRN (20:39)
[2019-01-22] MEDS: HYDROcodone/Acetaminophen 7.5/325 mg Tablet PO PRN ×3 (01:58→12:43)
[2019-01-22 07:24] VITALS: BP 106/71; TEMP 97.9
[2019-01-22] MEDS: Famotidine 20 MG TAB PO SCH (08:30)
[2019-01-22] MEDS: Rivaroxaban 15 MG TAB PO SCH (08:30)
[2019-01-22] MEDS: Loratadine 10 MG TAB PO SCH (08:30)
[2019-01-22] MEDS: Glimepiride 4 MG TAB PO SCH (08:31)
[2019-01-22] MEDS: Docusate 100 MG CAP PO SCH (08:31)
[2019-01-22] MEDS: HumaLOG 300 UNITS/3 ML VIAL SC PRN (12:43)
== END 2019-01-22 15:36 ==
LOC: ERS 09:34 → T4-A 15:31
PROVIDERS: ADMIT Internal Medicine; ATTEND Internal Medicine
DX: S72.111A Displaced fracture of greater trochanter of right femur, initial encounter for closed fracture (principal); S51.011A Laceration without foreign body of right elbow, initial encounter; I10 Essential (primary) hypertension; E11.9 Type 2 diabetes mellitus without complications; C78.7 Secondary malignant neoplasm of liver and intrahepatic bile duct; E78.5 Hyperlipidemia, unspecified; Z85.42 Personal history of malignant neoplasm of other parts of uterus; Z86.718 Personal history of other venous thrombosis and embolism; Z79.01 Long term (current) use of anticoagulants; Z79.84 Long term (current) use of oral hypoglycemic drugs; Z79.899 Other long term (current) drug therapy; Z90.710 Acquired absence of both cervix and uterus; W01.0XXA Fall on same level from slipping, tripping and stumbling without subsequent striking against object, initial encounter; Y92.002 Bathroom of unspecified non-institutional (private) residence as the place of occurrence of the external cause
CPT/HCPCS: 36415; 36416; 72170; 72192; 80048; 80053; 84439; 84443; 85025; 85610; 85730; 90471; 90715; 93005; 93010; 96361; 96374; 96375; 96376; G0378; J1642; J2270; J2405

== ENCOUNTER 2019-02-25 08:40 | Outpatient (CLI) | payer OTHER ==
--- NOTE | 2019-02-25 10:20 | CT ---
Exam: CHEST CT WITH CONTRAST ABDOMEN CT WITH CONTRAST PELVIC CT WITH CONTRAST: HISTORY: Malignant neoplasm of the endometrium. Correlation: None COMPARISON: CT pelvis 01/17/2019, chest/abdomen/pelvis CT 09/30/2018, abdomen/pelvis CT 10/19/2018 FINDINGS: Chest CT: Mediastinum: No mass, lymphadenopathy or hematoma. Heterogeneous thyroid gland with possible left thy roid lobe nodule, incompletely evaluated. Aorta: Normal caliber. No aneurysm, dissection or periaortic fat stranding. Heart: Normal size. No pericardial fluid. Trachea and central bronchi: Patent Pleural spaces: No pleural effusion. Right lung: Minimal dependent atelectatic changes. Stable 5 mm pleural-based nodule posterior right h emithorax. Left lung:Minimal dependent atelectatic changes. No suspicious masses. Pneumothorax: None Abdomen CT: Gallbladder: Unremarkable Portal vein: Patent Liver: Interval decrease in size of a hypodense lesion noted in the hepatic dome. Currently, the lesi on measures 2.3 x 1.4 cm. Previously, this lesion measured 2.6 x 1.6 cm. No new masses in the liver.. Spleen: Appropriate enhancement Pancreas: Appropriate enhancement Adrenal glands: Appropriate enhancement Lymphadenopathy: Interval decrease in size of a previously reported hypodense mass in the lexi hepat is, adjacent to the head of the pancreas. Currently, this hypodense region measures 1.7 x 1.3 cm (previously reported to be 5.9 x 3.5 cm). Previously noted pericaval lymphadenopathy has decreased in size. Currently, pericaval lymph node measures 1.6 x 1.2 cm (previously measuring 2.1 x 1.9 cm). Enlarged left periaortic lymph node currently measures 1.3 x 1.0 cm (previously measuring 1.5 x 1.8 c m. Kidneys: No obstructive uropathy. Mesentery: No mesenteric mass, free air or free fluid. Alimentary canal: No evidence of bowel obstruction. Pelvis CT: Surgically absent uterus. No pelvic mass, lymphadenopathy or significant free fluid. Trace amount of free fluid is noted. Unremarkable urinary bladder. Air in the nondependent portion of the urinary bladder is presumed to be due to recent Arizmendi catheterization. Correlate clinically. Osseous structures: Pathologic fracture due to metastatic deposit in the right greater trochanter is once again demonstra seth. IMPRESSION: .1. Partial response to therapy. Interval decrease in size of retroperitoneal lymph nodes, lymph node in the lexi hepatis as well as a lesion in the hepatic dome. 2. Redemonstration of a pathologic fracture involving the right greater trochanter. Transcribed Date/Time: 02/25/2019 10:40 AM
[2019-02-25] MEDS ORDERED: Iopamidol 370 76% 100 ML VIAL ONE (11:44)
== END 2019-02-25 08:41 | disposition home or self-care (01) ==
LOC: CT 08:40
PROVIDERS: ATTEND Internal Medicine Hematology & Oncology
DX: C54.1 Malignant neoplasm of endometrium (principal); C77.0 Secondary and unspecified malignant neoplasm of lymph nodes of head, face and neck; M84.451A Pathological fracture, right femur, initial encounter for fracture; K76.9 Liver disease, unspecified
CPT/HCPCS: 71260; 74177

== ENCOUNTER 2019-05-10 15:10 | Emergency (ER) | payer OTHER ==
[~2019-05-10 15:10] MED LIST: ISOVUE-370 76%-LOCM 1 ML ONE
[2019-05-10 15:33] LABS: #Eosinphils 0.1 thou/uL (0.0-0.7); #Lymphocytes 3.1 thou/uL (1.20-3.40); #Monocytes 0.9 thou/uL (0.11-0.59); #Neutrophils 9.4 thou/uL (1.40-6.50); %Basophils 0.2 % (0.0-1.0); %Eosinophils 0.6 % (0.0-10.0); %Lymphocytes 23.3 % (21.0-51.0); %Monocytes 6.5 % (0.0-10.0); %Neutrophils 69.5 % (42.0-75.0); Hemoglobin 10.1 g/dL (12.0-16.0); Mean Corpuscular Volume 96.7 fL (78.0-98.0); Mean Platelet Volume 8.1 fL (7.4-10.4); Platelet Count 344 thou/uL (130-400); Red Blood Cell (RBC) Count 3.36 mill/uL (4.20-5.40); White Blood Cell (WBC) Count 13.5 thou/uL (4.8-10.8)
[2019-05-10 15:55] LABS: ALT (SGPT) 13 U/L (8-55); AST (SGOT) 17 U/L (5-34); Albumin 4.1 g/dL (3.4-4.8); Alkaline Phosphatase 70 U/L (40-150); Anion Gap 17 mmol/L (10-20); BUN (Urea Nitrogen) 16 mg/dL (9.8-20.1); Bilirubin, Total 0.8 mg/dL (0.2-1.2); Calc. Creatinine Clearance 0 mL/min (70-130); Carbon Dioxide 23 mmol/L (23-31); Chloride 97 mmol/L (98-107); Estimated GFR-MDRD 56; Globulin 4.1 g/dL (2.4-3.5); Glucose 188 mg/dL (80-115); Lipase 29 U/L (8-78); Potassium 3.5 mmol/L (3.5-5.1); Protein, Total 8.2 g/dL (6.0-8.3); Sodium 133 mmol/L (136-145)
[2019-05-10] MEDS ORDERED: Morphine 4 MG/ML VIAL ONE (17:18)
[2019-05-10] MEDS ORDERED: Ondansetron PF 4 MG/2 ML Vial ONE ×2 (17:18→18:32)
--- NOTE | 2019-05-10 18:18 | CT ---
CT ABDOMEN AND PELVIS WITH IV CONTRAST: INDICATIONS: Abdominal pain. Under treatment with chemotherapy for uterine cancer with metastasis to the lymph no nereida. COMPARISON: Recent CT abdomen and pelvis from 02/25/2019. TECHNIQUE: Axial tomograms obtained with IV enhancement. FINDINGS: The lung bases are clear. The hepatic lesion under the dome of the diaphragm on the right is unchanged measuring approximately 1.5 cm in the coronal plane. The liver and spleen are unremarkable. The pancreas is unremarkable. The adenopathy in the lxei hepatis and lexi caval regions is again noted. A large necrotic lexi c aval lymph node appears to have enlarged in size, measuring up to 2.4 cm in AP dimension today. This previously measured in the 1.3 cm range. The adrenal glands and kidneys are unremarkable. Bowel loops are unremarkable. Paraaortic adenopathy is otherwise stable. A lytic lesion involving the trochanter of the right femur has been previously described and is again noted. IMPRESSION: 1. Adenopathy involving the lexi hepatis and the lexi caval regions again noted. The large, necro tic lexi caval lymph node has increased in size. 2. Liver lesion under the dome of the diaphragm on the right is stable. 3. Paraaortic adenopathy is stable. 4. No other evidence of acute process. POS: EMILI
[2019-05-10] MEDS ORDERED: Ketorolac Tromethamine 30 MG/ML VIAL ONE (18:32)
[2019-05-10 18:34] LABS: Bilirubin Negative (Negative); Blood, Urine 1+ (Negative); Clarity Extra Turbid (Clear); Glucose, Urine (Dipstick) Normal (Negative); Leukocyte 500 Leu/uL (Negative); Nitrite Negative (Negative); Protein, Urine (Dipstick) 30 mg/dL (Neg-Trace); Squamous Epithelial 0-3 HPF (0-3); Transitional Epithelial 0-3 HPF (None Seen); Urobilinogen Normal mg/dL (Less than 2); WBC/HPF Greater than 50 HPF (0-3)
[2019-05-10 18:43] LABS: Bacteria/HPF 3+ HPF (None Seen)
== END 2019-05-10 19:50 | disposition home or self-care (01) ==
LOC: ERS 15:10
DX: N39.0 Urinary tract infection, site not specified (principal); E11.9 Type 2 diabetes mellitus without complications; I10 Essential (primary) hypertension; Z79.899 Other long term (current) drug therapy; Z79.01 Long term (current) use of anticoagulants
CPT/HCPCS: 36415; 74177; 80053; 81003; 81015; 83690; 85025; 87077; 87086; 87186; 96361; 96372; 96374; 96375; 96376; J0500; J1885; J2270; J2405; Q9966

== ENCOUNTER 2019-05-25 09:14 | Outpatient (CLI) | payer OTHER ==
--- NOTE | 2019-05-25 10:18 | CT ---
EXAM: CT of the chest with contrast CT of the abdomen and pelvis with contrast HISTORY: Endometrial cancer with metastatic lymph nodes in the head, face, and neck. COMPARISON: 02/25/2019 TECHNIQUE: 1. Multiple contiguous axial images were obtained in a CT the chest with contrast. Coronal reformats were performed. 2. Multiple contiguous axial images were obtained and a CT of the abdomen and pelvis with contrast. C oronal reformats were performed. FINDINGS: CT CHEST: HEART: Normal in size without focal cardiac abnormality MEDIASTINUM: No hilar or mediastinal lymphadenopathy. LUNGS: There is a stable 5 mm peripheral nodule in the right upper lobe. PLEURAL SPACE: No pneumothorax or pleural effusion. CHEST WALL SOFT TISSUES: There is a right-sided Mediport with its tip in the superior cava. CT ABDOMEN/PELVIS: ABDOMEN: LIVER: There is a tiny smaller hypodense region along the hepatic dome in the right lobe of the liver . There is worsening hypodensity in the lexi hepatis with surrounding stranding change. The central hypodensity now measures 2.5 cm in greatest dimension. BILE DUCTS: Normal caliber. GALLBLADDER: No calcified gallstones. Normal caliber wall. PANCREAS: No significant abnormality. SPLEEN: within normal limits. ADRENALS: within normal limits. KIDNEYS: within normal limits. PELVIS: REPRODUCTIVE ORGANS: Status post hysterectomy. URETERS: within normal limits. BLADDER: within normal limits. PERITONEUM: No ascites or free air, no fluid collection. BOWEL: Normal caliber. MESENTERY AND RETROPERITONEUM: There are enlarged retroperitoneal lymph nodes measuring up to 1.9 cm in size. These appear to have progressed and demonstrate continued enlargement compared to the prior exam. VESSELS: Atherosclerotic calcifications. ABDOMINAL WALL: within normal limits. OSSEOUS STRUCTURES: There is a stable greater trochanter right femur fracture. IMPRESSION: 1. Worsening hypodensity with surrounding inflammatory change in the lexi hepatis. This likely repre sents worsening of metastatic disease. 2. Worsening retroperitoneal adenopathy 3. Stable tiny right pulmonary nodule 4. Stable right greater trochanter femur fracture which may be pathologic 5. Smaller hypodensity along the right hepatic dome
[2019-05-25] MEDS ORDERED: ISOVUE-370 76%-LOCM 1 ML ONE (14:47)
== END 2019-05-25 09:15 | disposition home or self-care (01) ==
LOC: BICCT 09:14
PROVIDERS: ATTEND Internal Medicine Hematology & Oncology
DX: C77.0 Secondary and unspecified malignant neoplasm of lymph nodes of head, face and neck (principal); C54.1 Malignant neoplasm of endometrium; R59.0 Localized enlarged lymph nodes; R91.1 Solitary pulmonary nodule; S72.111A Displaced fracture of greater trochanter of right femur, initial encounter for closed fracture; R93.2 Abnormal findings on diagnostic imaging of liver and biliary tract
CPT/HCPCS: 71260; 74177; Q9966

== ENCOUNTER 2019-06-23 09:42 | Emergency (ER) | payer OTHER, SELFPAY ==
[2019-06-23] MEDS ORDERED: Morphine 4 MG/ML VIAL ONE ×4 (10:17→12:20)
[2019-06-23] MEDS ORDERED: Ondansetron PF 4 MG/2 ML Vial ONE ×3 (10:17→11:18)
[2019-06-23 10:21] LABS: #Eosinphils 0.1 thou/uL (0.0-0.7); #Lymphocytes 1.9 thou/uL (1.20-3.40); #Monocytes 0.5 thou/uL (0.11-0.59); #Neutrophils 10.1 thou/uL (1.40-6.50); %Basophils 0.4 % (0.0-1.0); %Eosinophils 0.7 % (0.0-10.0); %Lymphocytes 15.2 % (21.0-51.0); %Monocytes 3.9 % (0.0-10.0); %Neutrophils 79.8 % (42.0-75.0); Hemoglobin 10.3 g/dL (12.0-16.0); Mean Corpuscular HGB CONC 31.6 g/dL (32.0-36.0); Mean Corpuscular Hemoglobin 29.4 pg (27.0-31.0); Mean Corpuscular Volume 92.9 fL (78.0-98.0); Mean Platelet Volume 7.5 fL (7.4-10.4); Platelet Count 367 thou/uL (130-400); RBC Distribution Width 15.6 % (11.5-14.5); Red Blood Cell (RBC) Count 3.51 mill/uL (4.20-5.40); White Blood Cell (WBC) Count 12.6 thou/uL (4.8-10.8)
[2019-06-23 10:22] LABS: ALT (SGPT) 14 U/L (8-55); AST (SGOT) 13 U/L (5-34); Albumin 4.1 g/dL (3.4-4.8); Alkaline Phosphatase 78 U/L (40-150); Anion Gap 14 mmol/L (10-20); BUN (Urea Nitrogen) 11 mg/dL (9.8-20.1); Bilirubin, Total 0.5 mg/dL (0.2-1.2); Calc. Creatinine Clearance 0 mL/min (70-130); Calcium 10.2 mg/dL (7.8-10.44); Carbon Dioxide 24 mmol/L (23-31); Chloride 96 mmol/L (98-107); Estimated GFR-MDRD 75; Glucose 161 mg/dL (80-115); Lipase 11 U/L (8-78); Potassium 3.8 mmol/L (3.5-5.1); Protein, Total 8.1 g/dL (6.0-8.3); Sodium 130 mmol/L (136-145)
[2019-06-23 11:02] LABS: MDiff Complete? YES; Platelet Morphology Comment Appears Adequate; Polychromasia SLIGHT = 2-3 cells (100X) (0-2/hpf)
--- NOTE | 2019-06-23 11:31 | CT ---
EXAM: Abdomen and pelvic CT scan with contrast: HISTORY: Abdominal pain COMPARISON: 06/10/2019 FINDINGS: No evidence of pulmonary metastasis. Minimal linear pleural-based parenchymal changes bilaterally. Liver: Somewhat peripherally enhancing lesion in the dome of the right lobe of the liver slightly les s well-defined than on the prior study otherwise unchanged. Gallbladder:Unremarkable. Pancreas:Pancreas appears normal. Extensive matted adenopathy in the peripancreatic and lexi hepatis region the combination of which m easures approximately 5.3 x 6.2 cm in size increasing from prior study, at which time it measured 5.0 x 5.7 cm. Spleen:Unremarkable. Adrenal glands:Unremarkable. Kidneys:No renal calculus or acute obstruction. No solid or cystic renal mass. No evidence for bowel obstruction. No CT evidence for acute appendicitis. The urinary bladder is unremarkable. Evidence for prior hysterectomy. Multiple enlarged periaortic and aortocaval lymph nodes increasing in size minimally from the prior s tudy. 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 IMPRESSION: Minimally worsening extensive adenopathy as above. No significant new process. Other findings as analilia mcconnell
[2019-06-23 11:57] LABS: Bilirubin Negative (Negative); Blood, Urine Negative (Negative); Clarity Clear (Clear); Glucose, Urine (Dipstick) Normal (Negative); Leukocyte Negative Leu/uL (Negative); Nitrite Negative (Negative); Protein, Urine (Dipstick) Negative (Neg-Trace); Urobilinogen Normal mg/dL (Less than 2)
[2019-06-23] MEDS ORDERED: HYDROcodone/Acetaminophen 10/325 mg Tablet ONE (12:38)
[2019-06-23] MEDS ORDERED: fentaNYL 50 mcg/hour Patch TD SCH (13:15)
[2019-06-23] MEDS ORDERED: Fentanyl 100 MCG/2 ML VIAL ONE (14:12)
[2019-06-23] MEDS ORDERED: ISOVUE-370 76%-LOCM 1 ML ONE (16:39)
--- NOTE | 2019-06-27 01:03 | EKG ---
Test Reason : ABD PAIN Blood Pressure : / mmHG Vent. Rate : 085 BPM Atrial Rate : 085 BPM P-R Int : 160 ms QRS Dur : 076 ms QT Int : 340 ms P-R-T Axes : 055 031 067 degrees QTc Int : 404 ms Normal sinus rhythm Normal ECG Confirmed by JF BECKWITH ([id number]), fan mail editor MAYRA CALDERA ([id number]) on 06/27/2019 1:02:12 AM Referred By: Confirmed By:JF BECKWITH
== END 2019-06-23 14:18 | disposition home or self-care (01) ==
LOC: ERS 09:42
DX: R10.9 Unspecified abdominal pain (principal); C54.1 Malignant neoplasm of endometrium; E11.9 Type 2 diabetes mellitus without complications; R11.0 Nausea; I10 Essential (primary) hypertension; Z79.899 Other long term (current) drug therapy; Z79.84 Long term (current) use of oral hypoglycemic drugs
CPT/HCPCS: 36415; 51701; 74177; 80053; 81003; 83690; 85025; 93005; 96361; 96374; 96375; 96376; A4353; J2270; J2405; J3010; Q9966

== ENCOUNTER 2019-06-29 07:41 | Inpatient (IN) | payer OTHER ==
[2019-06-29 08:27] LABS: #Basophils 0.1 thou/uL (0.0-0.2); #Eosinphils 0.3 thou/uL (0.0-0.7); #Lymphocytes 2.5 thou/uL (1.20-3.40); #Monocytes 0.7 thou/uL (0.11-0.59); #Neutrophils 10.3 thou/uL (1.40-6.50); %Basophils 0.6 % (0.0-1.0); %Eosinophils 1.9 % (0.0-10.0); %Lymphocytes 18.3 % (21.0-51.0); %Monocytes 4.9 % (0.0-10.0); %Neutrophils 74.4 % (42.0-75.0); Hemoglobin 9.1 g/dL (12.0-16.0); Mean Corpuscular HGB CONC 32.2 g/dL (32.0-36.0); Mean Corpuscular Hemoglobin 29.6 pg (27.0-31.0); Mean Platelet Volume 7.9 fL (7.4-10.4); Platelet Count 368 thou/uL (130-400); RBC Distribution Width 15.4 % (11.5-14.5); Red Blood Cell (RBC) Count 3.08 mill/uL (4.20-5.40); White Blood Cell (WBC) Count 13.9 thou/uL (4.8-10.8)
[2019-06-29 08:31] LABS: ALT (SGPT) 12 U/L (8-55); AST (SGOT) 13 U/L (5-34); Albumin 3.8 g/dL (3.4-4.8); Alkaline Phosphatase 77 U/L (40-150); Anion Gap 13 mmol/L (10-20); BUN (Urea Nitrogen) 15 mg/dL (9.8-20.1); Bilirubin, Total 0.4 mg/dL (0.2-1.2); Calc. Creatinine Clearance 0 mL/min (70-130); Calcium 9.7 mg/dL (7.8-10.44); Carbon Dioxide 22 mmol/L (23-31); Chloride 100 mmol/L (98-107); Estimated GFR-MDRD 56; Globulin 3.6 g/dL (2.4-3.5); Glucose 142 mg/dL (80-115); Lipase 6 U/L (8-78); Potassium 3.9 mmol/L (3.5-5.1); Protein, Total 7.4 g/dL (6.0-8.3); Sodium 131 mmol/L (136-145)
[2019-06-29] MEDS ORDERED: Morphine 4 MG/ML VIAL ONE ×2 (09:50→12:22)
--- NOTE | 2019-06-29 10:07 | CT ---
CT ABDOMEN AND PELVIS WITH IV CONTRAST 06/29/2019 CLINICAL INFORMATION: Abdominal pain for one month. Constipation. History of endometrial cancer with metastatic lymph nodes . COMPARISON: 06/23/2019 06/10/2019. Technique: Multiple contiguous axial CT images are obtained through the abdomen and pelvis with IV contrast. Cor onal reformatted images are provided. FINDINGS: Lower Chest: Bibasilar atelectasis is present. No discrete pulmonary nodule, mass, or pleural effusio n is identified. Vessels: Vascular calcifications and mild atherosclerotic plaque is seen in the abdominal aorta and i nvolving the iliac arteries. Abdomen: Portal vein:Narrowing of the main portal vein secondary to necrotic lymphadenopathy in the lexi hepa tis. This is unchanged from prior exam. Gallbladder: Within normal limits for CT imaging. Liver: There is a stable hypodense lesion with adjacent enhancement again seen in the anterior aspect dome of the liver, stable in appearance when compared to the prior exams. This lesion was better defined on the prior studies. No new hepatic lesion is seen. Spleen: within normal limits. Pancreas: within normal limits. Adrenals: within normal limits. Kidneys: There is a stable subcentimeter hypodense lesion seen in the midportion left kidney measurin g 1.8 cm. This lesion cannot be characterized as a cyst. Bowel: Small to moderate amount of retained fecal material is seen throughout the colon greater in th e region of the ascending colon and involving the rectum. There is question of focal circumferential thickening involving the region of the rectosigmoid junction. This is likely related to peristalsis as this was not visualized on the recent study on 06/23/2019. This was not seen on prior studies. Appendix: The appendix is visualized and normal in caliber. Peritoneum: There is mild edema and inflammatory stranding seen in a presacral location which was not appreciated on the prior exam. No fluid collection is seen in this region. There does not appear to be adjacent colonic wall thickening. Mesentery and Retroperitoneum: Again noted is the masslike area area of heterogeneity likely due to e nlarged conglomeration of necrotic lymph nodes in the region of the lexi hepatis and in the peripancreatic location. The conglomeration of necrotic lymphadenopathy in the lexi hepatis measures 6.5 cm x 5.9 cm with previously obtained measurement of 6.2 cm x 5.3 cm. The aortocaval lymphadenopathy is also again seen with largest lymph nodes measuring 2.5 cm and 1.9 cm in short axis dimension respectively. These lymph nodes are similar to prior exam. Abdominal Wall: within normal limits. Pelvis: Reproductive Organs: The uterus is surgically absent. Pelvis within normal limits. Bladder: within normal limits. Bones: Previously described pathologic fracture involving the right greater trochanter is again seen and unchanged in appearance compared to prior exam. No additional lytic or sclerotic osseous lesions are appreciated. IMPRESSION: 1. Interval enlargement of conglomeration of necrotic lymphadenopathy in the region of the lexi hepa tis and peripancreatic location with overall stable aortocaval lymphadenopathy. 2. Stable hypodense lesion with adjacent faint enhancement in the anterior dome of the liver. This le marta is less conspicuous when compared to the prior exams but does persist. 3. Stable hypodense lesion in the midportion left kidney. This lesion cannot be characterized as a cy st. 4. Interval development of mild presacral edema and inflammatory stranding of uncertain etiology. The re is no adjacent colonic wall thickening in this region. 5. Stable pathologic fracture right greater trochanter.
[2019-06-29 10:35] LABS: Bilirubin Negative (Negative); Blood, Urine Trace (Negative); Glucose, Urine (Dipstick) Negative (Negative); Leukocyte Small (Negative); Nitrite Negative (Negative); Protein, Urine (Dipstick) Negative (Neg-Trace); Urobilinogen 0.2 mg/dL (Less than 2)
[2019-06-29 10:37] LABS: Clarity Hazy (Clear)
[2019-06-29 10:45] LABS: Bacteria/HPF Rare-Few HPF (None Seen); RBC/HPF 0-3 HPF (0-3); Squamous Epithelial 0-3 HPF (0-3)
[2019-06-29 10:46] LABS: Transitional Epithelial 0-3 HPF (None Seen)
[2019-06-29] MEDS ORDERED: ISOVUE-370 76%-LOCM 1 ML ONE (11:08)
[2019-06-29] MEDS ORDERED: Ondansetron PF 4 MG/2 ML Vial ONE (12:00)
--- NOTE | 2019-06-29 13:21 | HP ---
PRIMARY CARE PHYSICIAN: [facility]. REASON FOR ADMISSION: Intractable abdominal pain and severe constipation. HISTORY OF PRESENT ILLNESS: A 64-year-old female, who has underlying history of stage 4 endometrial carcinoma as well as history of left lower extremity deep vein thrombosis on chronic anticoagulation therapy, who presented to emergency room for evaluation of abdominal pain. The patient reports that she has chronic diffuse abdominal pain and her pain is controlled with [place] and fentanyl. She is taking [place] 2 tablets every 6 hourly as well as recently her fentanyl patch dose was increased from 50 to 75 mcg. The patient was not doing well with this regimen, lately her pain was gotten worse. Yesterday, she had scant amount of very hard bowel movement and the patient feels that she is also constipated. She has generalized weakness, nausea, and poor appetite. As the patient's pain medication was not controlling her pain and that is why she came to emergency room for evaluation. In the emergency room, the patient had CT abdomen and pelvis, which showed interval enlargement of conglomeration of necrotic lymphadenopathy in the region of lexi hepatis and peripancreatic location. The patient was also found with constipation and she has a stable pathology fracture of right greater trochanter. She is pointing pain in diffuse abdomen location as well as on the both side of her lower back. Her intensity of pain is about 5/10 and it intermittently gets worse to 8/10, but her pain medicine not helping significantly. In the emergency room patient was given pain medication as well as Zofran and IV fluid and the patient is being admitted to medical floor for pain control. PAST MEDICAL HISTORY: Stage 4 endometrial carcinoma, history of left lower extremity deep vein thrombosis, diabetes type 2, dyslipidemia, hypertension, and anemia of chronic disease. PAST SURGICAL HISTORY: D and C, lumpectomy, hysterectomy, and MediPort placement. PAST PSYCHIATRIC HISTORY: Anxiety and depression. CURRENT HOME MEDICATIONS: 1. [place] 10 two tablets q.6 hourly p.r.n. 2. Amlodipine 5 mg daily. 3. Lipitor 40 mg at bedtime. 4. Pepcid 20 mg at bedtime. 5. Fentanyl patch 75 mcg daily. 6. Glimepiride 4 mg daily. 7. Xarelto 20 mg p.o. daily. 8. Prozac 10 mg p.o. daily. 9. Multivitamin one tablet p.o. daily. 10. Zofran 4 mg q.6 hourly p.r.n. 11. Megace 40 mg twice daily. REVIEW OF SYSTEMS: CONSTITUTIONAL: Negative for weight loss or gain, ability to conduct usual activities. SKIN: Negative for rash, itching. EYES: Negative for double vision, pain. ENT/MOUTH: Negative for nose bleeding, neck stiffness, pain, tenderness. CARDIOVASCULAR: Negative for palpitations, dyspnea on exertion, orthopnea. RESPIRATORY: Negative for shortness of breath, wheezing, cough, hemoptysis, fever or night sweats. GASTROINTESTINAL: Negative for poor appetite, abdominal pain, heartburn, nausea, vomiting, constipation, or diarrhea. GENITOURINARY: Negative for urgency, frequency, dysuria, nocturia. MUSCULOSKELETAL: Negative for pain, swelling. NEUROLOGIC/PSYCHIATRIC: Negative for anxiety, depression. ALLERGY/IMMUNOLOGIC: Negative for skin rash, bleeding tendency. Please see my HPI for pertinent positives and negatives. All other review of systems reviewed and negative except as mentioned in HPI. EMERGENCY ROOM COURSE AND TREATMENT: The patient is given morphine two dose, Zofran, and IV fluid. ALLERGIES: NO KNOWN DRUG ALLERGY. FAMILY HISTORY: Father had melanoma and multiple myeloma. SOCIAL HISTORY: The patient is and she has three children. No tobacco, alcohol, or illicit drug abuse. PHYSICAL EXAMINATION: VITAL SIGNS: Currently, blood pressure 157/70, pulse 100, respiratory rate 18, temperature 98.1, and saturation 99% on room air. Weight 71 kg. GENERAL: The patient is currently alert, awake, chronically ill, no obvious acute distress. HEENT: Head, normocephalic and atraumatic. Eyes, pupils are round and reactive to light. Extraocular muscle intact. ENT, oropharynx within normal limits. Somewhat dry appearing mucous membranes. No oral lesion. No pharyngeal erythema. No exudate. NECK: Supple. No JVD. No thyromegaly. No carotid bruit. LUNGS: Clear to auscultation without any rhonchi or rales. MediPort in place on the right side. CARDIAC: S1 and S2. Regular. Slight tachycardia. No murmur. No gallop. No rub. ABDOMEN: Diffuse discomfort noted. No peritoneal sign. No organomegaly. No mass. Predominantly tenderness is located in epigastric region as well as on the left upper quadrant. BACK: Unremarkable without any significant point tenderness. EXTREMITIES: Upper extremities, passive movement of all joints are normal. Lower extremities, no edema. Good distal pulsation. SKIN: No skin rash. HEMATOLOGIC SYSTEM: No lymphadenopathy. SIGNIFICANT LABORATORY DATA: CT abdomen and pelvis done today in the emergency room showing interval enlargement of conglomeration of necrotic lymphadenopathy in the region of lexi hepatis and peripancreatic location. Stable aortocaval lymphadenopathy and hence mid of anterior dome of liver, presacral edema, constipation, and pathological fracture of right greater trochanter. CBC; WBC 13.9, hemoglobin 9.1, and platelet 368. BMP; sodium 131, potassium 3.9, chloride 100, carbon dioxide 22, BUN 15, creatinine 1, glucose 142, and calcium 9.7. LFT; AST 13, ALT 12, alkaline phosphatase 77, albumin 3.8, and lipase 6. Urinalysis, leukocyte esterase small and wbc 11 to 20. ASSESSMENT: 1. Abdominal pain, diffuse, intractable, not controlled with her home regimen, likely related with underlying endometrial carcinoma as well as necrotic lymphadenopathy and recently worsened by constipation. 2. Constipation, likely related with narcotic use. 3. Asymptomatic urinary tract infection. 4. Chronic normocytic anemia. 5. Mild hyponatremia. 6. Dyslipidemia, on statin therapy. 7. Stage 4 endometrial carcinoma, not on any specific chemotherapy. The patient therapy was interrupted with financial reason. We will consult Oncology for their opinion regarding treatment plan. 8. Diabetes type 2. We will continue glimepiride 4 mg daily and continue insulin as per sliding scale protocol. 9. History of deep venous thrombosis and chronic anticoagulation with Xarelto, which we will continue while in hospital. 10. Anxiety and depression. Continue Prozac 10 mg daily. 11. Hypertension. Continue amlodipine 5 mg p.o. daily. PLAN: Observation to oncology floor. Oncology consultation. Pain control with pain medication. The patient will need Fleet Enema. Diet as tolerated. Code status discussed with the patient. The patient is full code. DVT prophylaxis, already on Xarelto therapy. Job ID: [id number]
[2019-06-29] MEDS ORDERED: Dextrose 50% Abboject 50 ML SYRINGE SLOW IVP PRN (15:40)
[2019-06-29] MEDS ORDERED: Calcium Carbonate 500 MG ChewTAB PO PRN (15:40)
[2019-06-29] MEDS ORDERED: HumaLOG 300 UNITS/3 ML VIAL SC PRN ×2 (15:40)
[2019-06-29] MEDS ORDERED: Senokot S 8.6-50 MG TAB PO PRN (15:40)
[2019-06-29] MEDS ORDERED: Loratadine 10 MG TAB PO PRN (15:40)
[2019-06-29] MEDS ORDERED: Artificial Tears 18 DROP/0.9 ML EA EYE PRN (15:40)
[2019-06-29] MEDS ORDERED: Zolpidem Tartrate 5 MG TAB PO PRN (15:40)
[2019-06-29] MEDS ORDERED: hydrALAZINE 20 MG/ML VIAL SLOW IVP PRN (15:40)
[2019-06-29] MEDS ORDERED: Dextrose 5% in Water 1,000 ML IV PRN (15:40)
[2019-06-29] MEDS ORDERED: HYDROcodone/Acetaminophen 10/325 mg Tablet PO PRN (15:40)
[2019-06-29] MEDS ORDERED: Bisacodyl 5 MG TAB PO PRN (15:40)
[2019-06-29] MEDS ORDERED: Sodium Chloride 0.65% Nasal 44 ML BOT EA NARE PRN (15:40)
[2019-06-29] MEDS ORDERED: Diabetic Tussin 200 MG/10 ML UDCUP PO PRN (15:40)
[2019-06-29] MEDS ORDERED: Acetaminophen 325 MG TAB PO PRN (15:40)
[2019-06-29] MEDS ORDERED: Bisacodyl 10 MG SUPP PR PRN (15:40)
[2019-06-29 15:45] VITALS: BMI 26.3
[2019-06-29] MEDS ORDERED: Fleet Enema 133 ML BOT PR SCH (15:45)
[2019-06-29] MEDS: Morphine 4 MG/ML VIAL SLOW IVP PRN ×4 (16:23→22:54)
[2019-06-29] MEDS: Sodium Chloride 0.9% 1,000 ML IV SCH (16:41)
[2019-06-29] MEDS: Ondansetron PF 4 MG/2 ML Vial IVP PRN (18:35)
[2019-06-29] MEDS: HYDROcodone/Acetaminophen 10/325 mg Tablet PO PRN (19:35)
[2019-06-29] MEDS: Amlodipine 5 MG TAB PO SCH (19:35)
[2019-06-29] MEDS: Famotidine 20 MG TAB PO SCH (19:35)
[2019-06-29] MEDS: Polyethylene Glycol 3350 17 GM Packet PO SCH (19:35)
[2019-06-30] MEDS: Morphine 4 MG/ML VIAL SLOW IVP PRN ×3 (01:24→19:33)
[2019-06-30] MEDS: Sodium Chloride 0.9% 1,000 ML IV SCH ×2 (04:16→19:33)
[2019-06-30] MEDS: HYDROcodone/Acetaminophen 10/325 mg Tablet PO PRN ×5 (04:17→20:36)
[2019-06-30 04:34] LABS: #Eosinphils 0.1 thou/uL (0.0-0.7); #Lymphocytes 2.2 thou/uL (1.20-3.40); #Monocytes 0.6 thou/uL (0.11-0.59); #Neutrophils 7.3 thou/uL (1.40-6.50); %Basophils 0.1 % (0.0-1.0); %Eosinophils 1.4 % (0.0-10.0); %Lymphocytes 21.2 % (21.0-51.0); %Monocytes 5.6 % (0.0-10.0); %Neutrophils 71.7 % (42.0-75.0); Hemoglobin 8.5 g/dL (12.0-16.0); Mean Corpuscular HGB CONC 32.5 g/dL (32.0-36.0); Mean Corpuscular Hemoglobin 29.8 pg (27.0-31.0); Mean Corpuscular Volume 91.5 fL (78.0-98.0); Platelet Count 242 thou/uL (130-400); RBC Distribution Width 15.2 % (11.5-14.5); Red Blood Cell (RBC) Count 2.86 mill/uL (4.20-5.40); White Blood Cell (WBC) Count 10.2 thou/uL (4.8-10.8)
[2019-06-30 05:09] LABS: Anion Gap 12 mmol/L (10-20); BUN (Urea Nitrogen) 8 mg/dL (9.8-20.1); Calc. Creatinine Clearance 90 mL/min (70-130); Calcium 9.5 mg/dL (7.8-10.44); Carbon Dioxide 24 mmol/L (23-31); Chloride 104 mmol/L (98-107); Estimated GFR-MDRD 86; Glucose 97 mg/dL (80-115); Potassium 3.7 mmol/L (3.5-5.1); Sodium 136 mmol/L (136-145)
[2019-06-30] MEDS: Glimepiride 2 MG TAB PO SCH (08:42)
[2019-06-30] MEDS: FLUoxetine HCl 10 MG CAP PO SCH (08:43)
[2019-06-30] MEDS: Famotidine 20 MG TAB PO SCH ×2 (08:43→20:08)
[2019-06-30] MEDS ORDERED: fentaNYL 75 mcg/hour Patch TD SCH (09:00)
--- NOTE | 2019-06-30 11:14 | PDOC.HOSPP ---
- Subjective Encounter Date: 06/30/19 Encounter Time: 11:11 Subjective: some success with dysimpaction - Objective Vital Signs & Weight: Vital Signs (12 hours) Temp Pulse Resp BP Pulse Ox 06/30/19 08:51 98.5 F 99 16 137/63 95 06/30/19 04:00 98.6 F 97 16 137/65 96 06/29/19 23:42 98.3 F 101 H 16 151/67 H 97 Weight Weight 153 lb 3.2 oz I&O: 06/29/19 06/30/19 07/01/19 06:59 06:59 06:59 Intake Total 990 Balance 990 Result Diagrams: 06/30/19 04:22 06/30/19 04:22 Additional Labs: Accuchecks 06/30/19 06/29/19 06/29/19 04:23 19:21 17:59 POC Glucose 104 103 101 Hospitalist ROS - Medication Medications: Active Medications Generic Name Dose Route Start Last Admin Trade Name Freq PRN Reason Stop Dose Admin Hydrocodone Bitart/Acetaminophen 2 tab 06/29/19 15:40 06/30/19 08:42 [place] 10/325 PO 2 tab Q4H PRN Administration Severe Pain (7-10) Amlodipine Besylate 5 mg 06/29/19 21:00 06/29/19 19:35 Norvasc PO 5 mg HS AKHIL Administration Famotidine 20 mg 06/29/19 21:00 06/30/19 08:43 Pepcid PO 20 mg BID AKHIL Administration Fluoxetine HCl 10 mg 06/30/19 09:00 06/30/19 08:43 Prozac PO 10 mg DAILY AKHIL Administration Glimepiride 4 mg 06/30/19 08:00 06/30/19 08:42 Amaryl PO 4 mg QAM-WM AKHIL Administration Sodium Chloride 1,000 mls @ 75 mls/hr 06/29/19 15:40 06/30/19 04:16 Normal Saline 0.9% IV 1,000 mls .[id number] AKHIL Administration Morphine Sulfate 4 mg 06/29/19 15:40 06/30/19 01:24 Morphine SLOW IVP 4 mg Q2H PRN Administration Pain Ondansetron HCl 4 mg 06/29/19 15:40 06/29/19 18:35 Zofran IVP 4 mg Q6H PRN Administration Nausea/Vomiting Polyethylene Glycol 17 gm 06/29/19 21:00 06/29/19 19:35 Miralax PO 17 gm HS AKHIL Administration - Exam Neck: no JVD Heart: RRR, no murmur Respiratory: CTAB Gastrointestinal: soft, normal bowel sounds Gastrointestinal - other findings: minimal generalized tenderness Hosp A/P (1) Abdominal pain Code(s): R10.9 - UNSPECIFIED ABDOMINAL PAIN Status: Acute Qualifiers: Abdominal location: generalized Qualified Code(s): R10.84 - Generalized abdominal pain (2) Endometrial cancer Code(s): C54.1 - MALIGNANT NEOPLASM OF ENDOMETRIUM Status: Chronic (3) Fecal impaction Code(s): K56.41 - FECAL IMPACTION Status: Acute (4) Diabetes mellitus Code(s): E11.9 - TYPE 2 DIABETES MELLITUS WITHOUT COMPLICATIONS Status: Chronic Qualifiers: Diabetes mellitus type: type 2 Diabetes mellitus terminal operations supervisor insulin use: without terminal operations supervisor use Diabetes mellitus complication status: without complication Qualified Code(s): E11.9 - Type 2 diabetes mellitus without complications (5) Hypertension Code(s): I10 - ESSENTIAL (PRIMARY) HYPERTENSION Status: Chronic Qualifiers: Hypertension type: essential hypertension Qualified Code(s): I10 - Essential (primary) hypertension - Plan dysimpaction inititiate immunotx selected home meds
[2019-06-30] MEDS: Rivaroxaban 10 MG TAB PO SCH (12:02)
--- NOTE | 2019-06-30 12:36 | CON ---
DATE OF CONSULTATION: REASON FOR CONSULT: Endometrial adenocarcinoma. HISTORY OF PRESENT ILLNESS: Ms. Louis is a pleasant 64-year-old female with stage 4 endometrial adenocarcinoma. She has had a hysterectomy and completed carboplatin and Avastin chemotherapy. She had progression in April of 2019. Unfortunately, at that time, she lost her insurance. She has been managed with pain medication and fortunately, her insurance was reinstated in June. She was due to start Keytruda immunotherapy. She has been on a fentanyl patch and taking [place] for pain. She presented to the emergency room with abdominal pain secondary to constipation. She has been struggling with weakness, nausea, and poor appetite for several months. She also takes Zofran at home, which is likely contributing to her constipation. She has been given laxatives on admission and has had several small bowel movements. We were asked to see the patient regarding her cancer. PAST MEDICAL HISTORY: 1. Stage 4 endometrial adenocarcinoma. 2. History of left lower extremity DVT. 3. Diabetes. 4. Hypertension. 5. High cholesterol. 6. Anemia. PAST SURGICAL HISTORY: 1. Hysterectomy. 2. Lumpectomy. 3. D and C. ALLERGIES: NO KNOWN DRUG ALLERGIES. HOME MEDICATIONS: 1. Xarelto 15 mg daily. 2. Stool softener daily. 3. MVI daily. 4. MiraLAX daily. 5. Megestrol 40 mg b.i.d. 6. Hydrocodone 10/325 p.r.n. 7. Glimepiride 4 mg daily. 8. Pepcid 20 mg daily. 9. Duragesic patch 75 mcg q.3 days. 10. Amlodipine 5 mg daily. FAMILY HISTORY: Father had melanoma and multiple myeloma. SOCIAL HISTORY: , has 3 children. Lives with her spouse. No alcohol, tobacco, or illicit drug use. REVIEW OF SYSTEMS: A 10-point review of systems is negative except for noted in HPI. PHYSICAL EXAMINATION: VITAL SIGNS: Temperature is 98.5, pulse is 99, respiratory rate is 16, BP is 137/63, and 95% on room air. GENERAL: This is a chronically ill-appearing female, in no acute distress. HEENT: Normocephalic and atraumatic. Pupils are equal and reactive to light. NECK: Supple. CV: Regular rate and rhythm. LUNGS: Clear. ABDOMEN: Nontender. Bowel sounds are positive. EXTREMITIES: No clubbing, cyanosis, or edema. SKIN: No rash. HEMATOLOGIC: No petechiae or purpura. NEUROLOGIC: Nonfocal. PSYCH: She is alert, oriented, and appropriate. PERTINENT LABS AND X-RAYS: Current WBCs are 10.2, hemoglobin 8.5, hematocrit 26.2, and platelet count 242,000. She has 71% neutrophils and 21% lymphocytes. Sodium is 136, potassium is 3.7, chloride is 104, CO2 is 24, BUN is 8, creatinine is 0.69, calcium is 9.5, bilirubin is 0.4, AST is 13, ALT is 12, alkaline phosphatase is 77, serum total protein is 7.4, albumin is 3.8, and globulin is 3.6. ASSESSMENT: 1. Stage 4 endometrial adenocarcinoma. 2. Severe constipation secondary to pain medications. DISCUSSION: The patient's fentanyl patch and [place] will be continued. We will start her on a bowel regimen including MiraLAX and a stool softener. She will be given a laxative today. We will plan to continue Xarelto. She is due for her first dose of immunotherapy. We will give her Keytruda while she is an inpatient. Case has been discussed with Dr. Melendez. Thank you for the consult. Job ID: [id number]
[2019-06-30] MEDS: Ondansetron PF 4 MG/2 ML Vial IVP PRN ×2 (14:23→20:07)
[2019-06-30] MEDS: Polyethylene Glycol 3350 17 GM Packet PO SCH (20:07)
[2019-06-30] MEDS: Amlodipine 5 MG TAB PO SCH (20:07)
[2019-06-30] MEDS: Docusate 100 MG CAP PO SCH (20:08)
[2019-07-01] MEDS: Ondansetron PF 4 MG/2 ML Vial IVP PRN ×3 (00:55→18:22)
[2019-07-01] MEDS: Morphine 4 MG/ML VIAL SLOW IVP PRN ×4 (01:14→12:28)
[2019-07-01] MEDS: HYDROcodone/Acetaminophen 10/325 mg Tablet PO PRN ×2 (02:11→09:46)
[2019-07-01] MEDS ORDERED: Pembrolizumab 200 MG in Sodium Chloride 0.9% 250 ML 250 ML IV SCH (06:00)
[2019-07-01] MEDS: Famotidine 20 MG TAB PO SCH ×2 (08:30→19:49)
[2019-07-01] MEDS: Docusate 100 MG CAP PO SCH ×2 (08:30→19:49)
[2019-07-01] MEDS: Glimepiride 2 MG TAB PO SCH (08:30)
[2019-07-01] MEDS: FLUoxetine HCl 10 MG CAP PO SCH (08:30)
[2019-07-01] MEDS ORDERED: fentaNYL 75 mcg/hour Patch TD SCH (09:00)
[2019-07-01] MEDS: Rivaroxaban 10 MG TAB PO SCH (09:49)
[2019-07-01] MEDS: Sodium Chloride 0.9% 1,000 ML IV SCH (09:58)
--- NOTE | 2019-07-01 11:28 | PDOC.MOPN ---
Interval History: requiring lots of pain meds today for abdominal pain. - Vital Signs Vital Signs: Vital Signs (12 hours) Temp Pulse Resp BP Pulse Ox 07/01/19 08:07 98.4 F 88 18 144/66 H 93 L 07/01/19 07:19 97 07/01/19 01:15 88 150/69 H Weight Weight 153 lb 0.013 oz - Physical Exam General: Alert, Oriented x3, No acute distress HEENT: Atraumatic, PERRLA, EOMI, Mucous membr. moist/pink Lungs: Clear to auscultation, Normal air movement Cardiovascular: Regular rate, Normal S1, Normal S2, No murmurs, Gallops, Rubs Abdomen: Other Extremities: No clubbing, No cyanosis, No edema, Normal pulses, No tenderness/ swelling Skin: No rashes, No breakdown, No significant lesion Neurological: Normal gait, Normal speech, Strength at 5/5 X4 ext, Normal tone, Sensation intact, Cranial nerves 3-12 NL, Reflexes 2+ Psych/Mental Status: Mental status NL, Mood NL - Labs Result Diagrams: 06/30/19 04:22 06/30/19 04:22 Lab results: Laboratory Results - last 24 hr 07/01/19 05:29: POC Glucose 100 06/30/19 20:34: POC Glucose 96 06/30/19 16:35: POC Glucose 109 06/30/19 12:13: POC Glucose 141 H Status: lab reviewed by me A/P - Problem (1) Endometrial cancer Current Visit: Yes Code(s): C54.1 - MALIGNANT NEOPLASM OF ENDOMETRIUM Status : Chronic - Plan Plan: Patient tolerating Keytruda. Constipation resolved Adjust pain meds to include MSIR
--- NOTE | 2019-07-01 11:33 | PDOC.HOSPP ---
- Subjective Encounter Date: 07/01/19 Encounter Time: 11:31 Subjective: bowemoving ok - Objective Vital Signs & Weight: Vital Signs (12 hours) Temp Pulse Resp BP Pulse Ox 07/01/19 08:07 98.4 F 88 18 144/66 H 93 L 07/01/19 07:19 97 07/01/19 01:15 88 150/69 H Weight Weight 153 lb 0.013 oz I&O: 06/30/19 07/01/19 07/02/19 06:59 06:59 06:59 Intake Total 990 1500 Balance 990 1500 Result Diagrams: 06/30/19 04:22 06/30/19 04:22 Additional Labs: Accuchecks 07/01/19 06/30/19 06/30/19 05:29 20:34 16:35 POC Glucose 100 96 109 06/30/19 12:13 POC Glucose 141 H Hospitalist ROS - Medication Medications: Active Medications Generic Name Dose Route Start Last Admin Trade Name Freq PRN Reason Stop Dose Admin Amlodipine Besylate 5 mg 06/29/19 21:00 06/30/19 20:07 Norvasc PO 5 mg HS AKHIL Administration Docusate Sodium 100 mg 06/30/19 21:00 07/01/19 08:30 Colace PO 100 mg BID AKHIL Administration Famotidine 20 mg 06/29/19 21:00 07/01/19 08:30 Pepcid PO 20 mg BID AKHIL Administration Fentanyl 75 mcg 07/01/19 09:00 07/01/19 10:13 Duragesic TD 75 mcg Q3D AKHIL Administration Fluoxetine HCl 10 mg 06/30/19 09:00 07/01/19 08:30 Prozac PO 10 mg DAILY AKHIL Administration Glimepiride 4 mg 06/30/19 08:00 07/01/19 08:30 Amaryl PO 4 mg QAM-WM AKHIL Administration Sodium Chloride 1,000 mls @ 75 mls/hr 06/29/19 15:40 07/01/19 09:58 Normal Saline 0.9% IV 1,000 mls .[id number] AKHIL Administration Morphine Sulfate 4 mg 06/29/19 15:40 07/01/19 10:26 Morphine SLOW IVP 4 mg Q2H PRN Administration Pain Ondansetron HCl 4 mg 06/29/19 15:40 07/01/19 08:29 Zofran IVP 4 mg Q6H PRN Administration Nausea/Vomiting Polyethylene Glycol 17 gm 06/29/19 21:00 06/30/19 20:07 Miralax PO 17 gm HS AKHIL Administration Rivaroxaban 20 mg 06/30/19 09:00 07/01/19 09:49 Xarelto PO 20 mg DAILY AKHIL Administration Sodium Chloride 10 ml 06/29/19 18:35 07/01/19 08:30 Flush - Normal Saline IVF 10 ml PRN PRN Administration Saline Flush - Exam Neck: no JVD Heart: RRR, no murmur Respiratory: CTAB, no wheezes Gastrointestinal: soft, normal bowel sounds Extremities: no edema Hosp A/P (1) Abdominal pain Code(s): R10.9 - UNSPECIFIED ABDOMINAL PAIN Status: Acute Qualifiers: Abdominal location: generalized Qualified Code(s): R10.84 - Generalized abdominal pain (2) Endometrial cancer Code(s): C54.1 - MALIGNANT NEOPLASM OF ENDOMETRIUM Status: Chronic (3) Fecal impaction Code(s): K56.41 - FECAL IMPACTION Status: Acute (4) Diabetes mellitus Code(s): E11.9 - TYPE 2 DIABETES MELLITUS WITHOUT COMPLICATIONS Status: Chronic Qualifiers: Diabetes mellitus type: type 2 Diabetes mellitus rat exterminator insulin use: without rat exterminator use Diabetes mellitus complication status: without complication Qualified Code(s): E11.9 - Type 2 diabetes mellitus without complications (5) Hypertension Code(s): I10 - ESSENTIAL (PRIMARY) HYPERTENSION Status: Chronic Qualifiers: Hypertension type: essential hypertension Qualified Code(s): I10 - Essential (primary) hypertension - Plan inititiate immunotx selected home meds
[2019-07-01] MEDS: Ondansetron ODT 4 MG TAB PO PRN (12:44)
[2019-07-01] MEDS: Morphine IR Tab 15 MG TAB PO PRN ×2 (15:16→19:48)
[2019-07-01] MEDS: Amlodipine 5 MG TAB PO SCH (19:49)
[2019-07-01] MEDS: Polyethylene Glycol 3350 17 GM Packet PO SCH (19:49)
[2019-07-01] MEDS ORDERED: HYDROcodone/Acetaminophen 10/325 mg Tablet PO SCH (22:30)
[2019-07-02] MEDS: Morphine IR Tab 15 MG TAB PO PRN ×6 (00:25→22:49)
[2019-07-02] MEDS: Glimepiride 2 MG TAB PO SCH (07:16)
[2019-07-02] MEDS: Ondansetron ODT 4 MG TAB PO PRN (07:16)
[2019-07-02] MEDS: FLUoxetine HCl 10 MG CAP PO SCH (08:54)
[2019-07-02] MEDS: Docusate 100 MG CAP PO SCH ×2 (08:54→21:35)
[2019-07-02] MEDS: Rivaroxaban 10 MG TAB PO SCH (08:54)
[2019-07-02] MEDS: Famotidine 20 MG TAB PO SCH ×2 (08:54→21:35)
[2019-07-02] MEDS: Ondansetron PF 4 MG/2 ML Vial IVP PRN (14:47)
--- NOTE | 2019-07-02 15:18 | PDOC.MOPN ---
Interval History: MSIR works better than [employer], continues to have abd pain with movement. + nausea - Vital Signs Vital Signs: Vital Signs (12 hours) Temp Pulse Resp BP Pulse Ox 07/02/19 08:00 98.5 F 98 18 134/68 98 Weight Weight 153 lb 0.013 oz - Physical Exam General: Alert, Oriented x3, No acute distress HEENT: Atraumatic, PERRLA, EOMI, Mucous membr. moist/pink Lungs: Clear to auscultation, Normal air movement Cardiovascular: Regular rate, Normal S1, Normal S2, No murmurs, Gallops, Rubs Abdomen: Other (LUQ tenderness) Extremities: No clubbing, No cyanosis, No edema, Normal pulses, No tenderness/ swelling Skin: No rashes, No breakdown, No significant lesion Neurological: Normal gait, Normal speech, Strength at 5/5 X4 ext, Normal tone, Sensation intact, Cranial nerves 3-12 NL, Reflexes 2+ Psych/Mental Status: Mental status NL, Mood NL - Labs Result Diagrams: 06/30/19 04:22 06/30/19 04:22 Lab results: Laboratory Results - last 24 hr 07/02/19 12:17: POC Glucose 84 07/02/19 05:15: POC Glucose 99 07/01/19 19:52: POC Glucose 100 07/01/19 16:17: POC Glucose 102 Status: lab reviewed by me A/P - Problem (1) Endometrial cancer Current Visit: Yes Code(s): C54.1 - MALIGNANT NEOPLASM OF ENDOMETRIUM Status : Chronic (2) Abdominal pain Current Visit: Yes Code(s): R10.9 - UNSPECIFIED ABDOMINAL PAIN Status: Acute Qualifiers: Abdominal location: generalized Qualified Code(s): R10.84 - Generalized abdominal pain - Plan Plan: Increase Fentanyl patch to 100mcg Continue MSIR Avoid IV pain meds
[2019-07-02] MEDS: fentaNYL 100 mcg/hour Patch TD SCH (16:44)
--- NOTE | 2019-07-02 19:05 | PDOC.HOSPP ---
- Subjective Encounter Date: 07/02/19 Encounter Time: 13:45 Subjective: pt up in bed still complains of pain to her abdomen. - Objective Vital Signs & Weight: Vital Signs (12 hours) Temp Pulse Resp BP Pulse Ox 07/02/19 08:00 98.5 F 98 18 134/68 98 Weight Weight 153 lb 0.013 oz I&O: 07/01/19 07/02/19 07/03/19 06:59 06:59 06:59 Intake Total 1500 3000 850 Balance 1500 3000 850 Result Diagrams: 07/05/19 09:39 07/05/19 09:39 Additional Labs: Accuchecks 07/02/19 07/02/19 07/02/19 15:43 12:17 05:15 POC Glucose 126 H 84 99 07/01/19 19:52 POC Glucose 100 Hospitalist ROS - Review of Systems Cardiovascular: denies: chest pain, palpitations, orthopnea, paroxysmal noc. dyspnea, edema, light headedness, other Gastrointestinal: reports: abdominal pain Genitourinary: denies: dysuria, frequency, incontinence, hematuria, retention, other - Medication Medications: Active Medications Generic Name Dose Route Start Last Admin Trade Name Freq PRN Reason Stop Dose Admin Amlodipine Besylate 5 mg 06/29/19 21:00 07/01/19 19:49 Norvasc PO 5 mg HS AKHIL Administration Docusate Sodium 100 mg 06/30/19 21:00 07/02/19 08:54 Colace PO Not Given BID AKHIL Famotidine 20 mg 06/29/19 21:00 07/02/19 08:54 Pepcid PO 20 mg BID AKHIL Administration Fentanyl 100 mcg 07/02/19 16:00 07/02/19 16:44 Duragesic TD 100 mcg Q3D AKHIL Administration Fluoxetine HCl 10 mg 06/30/19 09:00 07/02/19 08:54 Prozac PO 10 mg DAILY AKHIL Administration Glimepiride 4 mg 06/30/19 08:00 07/02/19 07:16 Amaryl PO 4 mg QAM-WM AKHIL Administration Morphine Sulfate 4 mg 06/29/19 15:40 07/01/19 12:28 Morphine SLOW IVP 4 mg Q2H PRN Administration Pain Morphine Sulfate 15 mg 07/01/19 11:24 07/02/19 18:33 Morphine Ir Tab PO 15 mg Q4H PRN Administration Moderate to Severe Pain (6-10) Ondansetron HCl 4 mg 06/29/19 15:40 07/02/19 07:16 Zofran Odt PO 4 mg Q6H PRN Administration Nausea/Vomiting Ondansetron HCl 4 mg 06/29/19 15:40 07/02/19 14:47 Zofran IVP 4 mg Q6H PRN Administration Nausea/Vomiting Polyethylene Glycol 17 gm 06/29/19 21:00 07/01/19 19:49 Miralax PO 17 gm HS AKHIL Administration Rivaroxaban 20 mg 06/30/19 09:00 07/02/19 08:54 Xarelto PO 20 mg DAILY AKHIL Administration Sodium Chloride 10 ml 06/29/19 18:35 07/02/19 14:47 Flush - Normal Saline IVF 10 ml PRN PRN Administration Saline Flush - Exam Neck: negative: supple, symmetric, no JVD, no thyromegaly, no lymphadenopathy, no carotid bruit, JVD Heart: negative: RRR, no murmur, no gallops, no rubs, normal peripheral pulses, irregular, diminshed peripheral pulses, murmur present, II/IV, III/IV Respiratory: negative: CTAB, no wheezes, no rales, no ronchi, normal chest expansion, no tachypnea, normal percussion, rales, rhonchi, tachypneic, wheezes Hosp A/P (1) Abdominal pain Code(s): R10.9 - UNSPECIFIED ABDOMINAL PAIN Status: Acute Qualifiers: Abdominal location: generalized Qualified Code(s): R10.84 - Generalized abdominal pain (2) Endometrial cancer Code(s): C54.1 - MALIGNANT NEOPLASM OF ENDOMETRIUM Status: Chronic (3) Diabetes mellitus Code(s): E11.9 - TYPE 2 DIABETES MELLITUS WITHOUT COMPLICATIONS Status: Chronic Qualifiers: Diabetes mellitus type: type 2 Diabetes mellitus assisted insulin use: without assisted use Diabetes mellitus complication status: without complication Qualified Code(s): E11.9 - Type 2 diabetes mellitus without complications (4) Hypertension Code(s): I10 - ESSENTIAL (PRIMARY) HYPERTENSION Status: Chronic Qualifiers: Hypertension type: essential hypertension Qualified Code(s): I10 - Essential (primary) hypertension (5) DVT of axillary vein, acute left Code(s): I82.A12 - ACUTE EMBOLISM AND THROMBOSIS OF LEFT AXILLARY VEIN Status : Acute - Plan pt's pain meds changed to long acting per oncology. she is tolerating her diet but not eating much. she is not nauseated. will get PT to see pt. will continue xarelto
[2019-07-02] MEDS: Polyethylene Glycol 3350 17 GM Packet PO SCH (20:11)
[2019-07-02] MEDS: Amlodipine 5 MG TAB PO SCH (21:36)
[2019-07-03] MEDS: Morphine IR Tab 15 MG TAB PO PRN ×5 (03:55→21:04)
[2019-07-03] MEDS: Ondansetron ODT 4 MG TAB PO PRN ×2 (08:00→19:07)
[2019-07-03] MEDS: Glimepiride 2 MG TAB PO SCH (08:02)
[2019-07-03] MEDS: Rivaroxaban 10 MG TAB PO SCH (08:02)
[2019-07-03] MEDS: FLUoxetine HCl 10 MG CAP PO SCH (08:02)
[2019-07-03] MEDS: Docusate 100 MG CAP PO SCH ×2 (08:07→21:04)
[2019-07-03] MEDS: Famotidine 20 MG TAB PO SCH ×2 (12:07→21:04)
[2019-07-03] MEDS: Morphine 4 MG/ML VIAL SLOW IVP PRN (14:15)
--- NOTE | 2019-07-03 15:33 | PDOC.HOSPP ---
- Subjective Encounter Date: 07/03/19 Encounter Time: 10:30 Subjective: pt up in bed still complains of pain to her abdomen when she ambulated with PT - Objective Vital Signs & Weight: Vital Signs (12 hours) Temp Pulse Resp BP Pulse Ox 07/03/19 08:00 97.7 F 106 H 18 132/99 H 96 Weight Weight 153 lb 0.013 oz I&O: 07/02/19 07/03/19 07/04/19 06:59 06:59 06:59 Intake Total 3000 1330 Balance 3000 1330 Result Diagrams: 06/30/19 04:22 06/30/19 04:22 Additional Labs: Accuchecks 07/03/19 07/03/19 07/02/19 11:18 05:09 20:18 POC Glucose 100 83 96 07/02/19 15:43 POC Glucose 126 H Hospitalist ROS - Review of Systems Respiratory: denies: cough, dry, shortness of breath, hemoptysis, SOB with excertion, pleuritic pain, sputum, wheezing, other Cardiovascular: denies: chest pain, palpitations, orthopnea, paroxysmal noc. dyspnea, edema, light headedness, other Gastrointestinal: reports: abdominal pain. denies: nausea, vomiting, diarrhea, constipation, melena, hematochezia, other Genitourinary: denies: dysuria, frequency, incontinence, hematuria, retention, other - Medication Medications: Active Medications Generic Name Dose Route Start Last Admin Trade Name Freq PRN Reason Stop Dose Admin Amlodipine Besylate 5 mg 06/29/19 21:00 07/02/19 21:36 Norvasc PO 5 mg HS AKHIL Administration Calcium Carbonate 1,000 mg 06/29/19 15:40 07/03/19 03:54 Tums PO 1,000 mg Q4H PRN Administration Heartburn or Indigestion Docusate Sodium 100 mg 06/30/19 21:00 07/03/19 08:07 Colace PO 100 mg BID AKHIL Administration Famotidine 20 mg 06/29/19 21:00 07/03/19 12:07 Pepcid PO 20 mg BID AKHIL Administration Fentanyl 100 mcg 07/02/19 16:00 07/02/19 16:44 Duragesic TD 100 mcg Q3D AKHIL Administration Fluoxetine HCl 10 mg 06/30/19 09:00 07/03/19 08:02 Prozac PO 10 mg DAILY AKHIL Administration Glimepiride 4 mg 06/30/19 08:00 07/03/19 08:02 Amaryl PO 4 mg QAM-WM AKHIL Administration Morphine Sulfate 4 mg 06/29/19 15:40 07/03/19 14:15 Morphine SLOW IVP 4 mg Q2H PRN Administration Pain Morphine Sulfate 15 mg 07/01/19 11:24 07/03/19 12:05 Morphine Ir Tab PO 15 mg Q4H PRN Administration Moderate to Severe Pain (6-10) Ondansetron HCl 4 mg 06/29/19 15:40 07/03/19 08:00 Zofran Odt PO 4 mg Q6H PRN Administration Nausea/Vomiting Ondansetron HCl 4 mg 06/29/19 15:40 07/02/19 14:47 Zofran IVP 4 mg Q6H PRN Administration Nausea/Vomiting Polyethylene Glycol 17 gm 06/29/19 21:00 07/02/19 20:11 Miralax PO Not Given HS AKHIL Rivaroxaban 20 mg 06/30/19 09:00 07/03/19 08:02 Xarelto PO 20 mg DAILY AKHIL Administration Sodium Chloride 10 ml 06/29/19 18:35 07/02/19 21:36 Flush - Normal Saline IVF 10 ml PRN PRN Administration Saline Flush - Exam Neck: negative: supple, symmetric, no JVD, no thyromegaly, no lymphadenopathy, no carotid bruit, JVD Heart: negative: RRR, no murmur, no gallops, no rubs, normal peripheral pulses, irregular, diminshed peripheral pulses, murmur present, II/IV, III/IV Respiratory: negative: CTAB, no wheezes, no rales, no ronchi, normal chest expansion, no tachypnea, normal percussion, rales, rhonchi, tachypneic, wheezes Gastrointestinal - other findings: mild pain on palpation of abdomen Hosp A/P (1) Abdominal pain Code(s): R10.9 - UNSPECIFIED ABDOMINAL PAIN Status: Acute Qualifiers: Abdominal location: generalized Qualified Code(s): R10.84 - Generalized abdominal pain (2) Endometrial cancer Code(s): C54.1 - MALIGNANT NEOPLASM OF ENDOMETRIUM Status: Chronic (3) Diabetes mellitus Code(s): E11.9 - TYPE 2 DIABETES MELLITUS WITHOUT COMPLICATIONS Status: Chronic Qualifiers: Diabetes mellitus type: type 2 Diabetes mellitus recycle driver insulin use: without recycle driver use Diabetes mellitus complication status: without complication Qualified Code(s): E11.9 - Type 2 diabetes mellitus without complications (4) Hypertension Code(s): I10 - ESSENTIAL (PRIMARY) HYPERTENSION Status: Chronic Qualifiers: Hypertension type: essential hypertension Qualified Code(s): I10 - Essential (primary) hypertension (5) DVT of axillary vein, acute left Code(s): I82.A12 - ACUTE EMBOLISM AND THROMBOSIS OF LEFT AXILLARY VEIN Status : Acute - Plan pt's pain meds changed to long acting per oncology. she is tolerating her diet but not eating much. she is not nauseated. will get PT to see pt. will continue xarelto 07/03 pt got up with PT and started to have abd pain. i think she is depressed. Have encouraged her to get up and ambulate.
[2019-07-03] MEDS: Polyethylene Glycol 3350 17 GM Packet PO SCH (21:05)
[2019-07-03] MEDS: Amlodipine 5 MG TAB PO SCH (23:11)
[2019-07-04] MEDS: Morphine IR Tab 15 MG TAB PO PRN ×4 (02:08→19:24)
[2019-07-04] MEDS: Docusate 100 MG CAP PO SCH ×2 (07:56→21:23)
[2019-07-04] MEDS: Glimepiride 2 MG TAB PO SCH (07:56)
[2019-07-04] MEDS: Famotidine 20 MG TAB PO SCH ×2 (07:56→21:26)
[2019-07-04] MEDS: Rivaroxaban 10 MG TAB PO SCH (07:57)
[2019-07-04] MEDS: FLUoxetine HCl 10 MG CAP PO SCH (07:57)
[2019-07-04] MEDS: Ondansetron ODT 4 MG TAB PO PRN ×2 (14:54→21:26)
--- NOTE | 2019-07-04 16:39 | PDOC.HOSPP ---
- Subjective Encounter Date: 07/04/19 Encounter Time: 16:38 Subjective: pt up in bed does have some abdomen pain - Objective Vital Signs & Weight: Vital Signs (12 hours) Temp Pulse Resp BP Pulse Ox 07/04/19 08:00 98.5 F 95 18 121/56 L 94 L Weight Weight 153 lb 0.013 oz I&O: 07/03/19 07/04/19 07/05/19 06:59 06:59 06:59 Intake Total 1330 1600 Balance 1330 1600 Result Diagrams: 07/05/19 09:39 07/05/19 09:39 Additional Labs: Accuchecks 07/04/19 07/04/19 07/03/19 11:27 05:40 20:40 POC Glucose 104 73 101 07/03/19 16:33 POC Glucose 93 Hospitalist ROS - Review of Systems Cardiovascular: denies: chest pain, palpitations, orthopnea, paroxysmal noc. dyspnea, edema, light headedness, other Gastrointestinal: reports: abdominal pain. denies: nausea, vomiting, diarrhea, constipation, melena, hematochezia, other - Medication Medications: Active Medications Generic Name Dose Route Start Last Admin Trade Name Freq PRN Reason Stop Dose Admin Amlodipine Besylate 5 mg 06/29/19 21:00 07/03/19 23:11 Norvasc PO Not Given HS AKHIL Calcium Carbonate 1,000 mg 06/29/19 15:40 07/03/19 03:54 Tums PO 1,000 mg Q4H PRN Administration Heartburn or Indigestion Docusate Sodium 100 mg 06/30/19 21:00 07/04/19 07:56 Colace PO 100 mg BID AKHIL Administration Famotidine 20 mg 06/29/19 21:00 07/04/19 07:56 Pepcid PO 20 mg BID AKHIL Administration Fentanyl 100 mcg 07/02/19 16:00 07/02/19 16:44 Duragesic TD 100 mcg Q3D AKHIL Administration Fluoxetine HCl 10 mg 06/30/19 09:00 07/04/19 07:57 Prozac PO 10 mg DAILY AKHIL Administration Glimepiride 4 mg 06/30/19 08:00 07/04/19 07:56 Amaryl PO 4 mg QAM-WM AKHIL Administration Morphine Sulfate 4 mg 06/29/19 15:40 07/03/19 14:15 Morphine SLOW IVP 4 mg Q2H PRN Administration Pain Morphine Sulfate 15 mg 07/01/19 11:24 07/04/19 13:10 Morphine Ir Tab PO 15 mg Q4H PRN Administration Moderate to Severe Pain (6-10) Ondansetron HCl 4 mg 06/29/19 15:40 07/04/19 14:54 Zofran Odt PO 4 mg Q6H PRN Administration Nausea/Vomiting Ondansetron HCl 4 mg 06/29/19 15:40 07/02/19 14:47 Zofran IVP 4 mg Q6H PRN Administration Nausea/Vomiting Polyethylene Glycol 17 gm 06/29/19 21:00 07/03/19 21:05 Miralax PO 17 gm HS AKHIL Administration Rivaroxaban 20 mg 06/30/19 09:00 07/04/19 07:57 Xarelto PO 20 mg DAILY AKHIL Administration Sodium Chloride 10 ml 06/29/19 18:35 07/03/19 21:05 Flush - Normal Saline IVF 10 ml PRN PRN Administration Saline Flush - Exam Heart: negative: RRR, no murmur, no gallops, no rubs, normal peripheral pulses, irregular, diminshed peripheral pulses, murmur present, II/IV, III/IV Respiratory: negative: CTAB, no wheezes, no rales, no ronchi, normal chest expansion, no tachypnea, normal percussion, rales, rhonchi, tachypneic, wheezes Gastrointestinal: normal bowel sounds Hosp A/P (1) Abdominal pain Code(s): R10.9 - UNSPECIFIED ABDOMINAL PAIN Status: Acute Qualifiers: Abdominal location: generalized Qualified Code(s): R10.84 - Generalized abdominal pain (2) Endometrial cancer Code(s): C54.1 - MALIGNANT NEOPLASM OF ENDOMETRIUM Status: Chronic (3) Diabetes mellitus Code(s): E11.9 - TYPE 2 DIABETES MELLITUS WITHOUT COMPLICATIONS Status: Chronic Qualifiers: Diabetes mellitus type: type 2 Diabetes mellitus longterm insulin use: without director long term care use Diabetes mellitus complication status: without complication Qualified Code(s): E11.9 - Type 2 diabetes mellitus without complications (4) Hypertension Code(s): I10 - ESSENTIAL (PRIMARY) HYPERTENSION Status: Chronic Qualifiers: Hypertension type: essential hypertension Qualified Code(s): I10 - Essential (primary) hypertension (5) DVT of axillary vein, acute left Code(s): I82.A12 - ACUTE EMBOLISM AND THROMBOSIS OF LEFT AXILLARY VEIN Status : Acute - Plan pt's pain meds changed to long acting per oncology. she is tolerating her diet but not eating much. she is not nauseated. will get PT to see pt. will continue xarelto 07/03 pt got up with PT and started to have abd pain. i think she is depressed. Have encouraged her to get up and ambulate. 07/04 will continue pain meds. PT to see pt. possible discharge home soon. pt tolerating orals well.
[2019-07-04] MEDS: Amlodipine 5 MG TAB PO SCH (21:20)
[2019-07-04] MEDS: Polyethylene Glycol 3350 17 GM Packet PO SCH (21:21)
[2019-07-05] MEDS: Glimepiride 2 MG TAB PO SCH (08:10)
[2019-07-05] MEDS: FLUoxetine HCl 10 MG CAP PO SCH (08:10)
[2019-07-05] MEDS: Morphine IR Tab 15 MG TAB PO PRN ×4 (08:10→22:47)
[2019-07-05] MEDS: Rivaroxaban 10 MG TAB PO SCH (08:11)
[2019-07-05] MEDS: Docusate 100 MG CAP PO SCH ×2 (08:11→20:27)
[2019-07-05] MEDS: Famotidine 20 MG TAB PO SCH ×2 (08:11→20:28)
[2019-07-05] MEDS: Ondansetron ODT 4 MG TAB PO PRN ×2 (08:13→22:49)
[2019-07-05 09:49] LABS: #Eosinphils 0.1 thou/uL (0.0-0.7); #Lymphocytes 1.8 thou/uL (1.20-3.40); #Monocytes 0.7 thou/uL (0.11-0.59); #Neutrophils 8.6 thou/uL (1.40-6.50); %Basophils 0.2 % (0.0-1.0); %Eosinophils 1.2 % (0.0-10.0); %Lymphocytes 15.8 % (21.0-51.0); %Neutrophils 76.8 % (42.0-75.0); Hemoglobin 8.9 g/dL (12.0-16.0); Mean Corpuscular HGB CONC 31.9 g/dL (32.0-36.0); Mean Corpuscular Hemoglobin 29.3 pg (27.0-31.0); Platelet Count 327 thou/uL (130-400); RBC Distribution Width 15.3 % (11.5-14.5); Red Blood Cell (RBC) Count 3.04 mill/uL (4.20-5.40); White Blood Cell (WBC) Count 11.1 thou/uL (4.8-10.8)
[2019-07-05 10:08] LABS: ALT (SGPT) 16 U/L (8-55); AST (SGOT) 16 U/L (5-34); Albumin 3.4 g/dL (3.4-4.8); Alkaline Phosphatase 99 U/L (40-150); Anion Gap 13 mmol/L (10-20); BUN (Urea Nitrogen) 12 mg/dL (9.8-20.1); Bilirubin, Total 0.5 mg/dL (0.2-1.2); Calc. Creatinine Clearance 78 mL/min (70-130); Calcium 9.3 mg/dL (7.8-10.44); Carbon Dioxide 25 mmol/L (23-31); Chloride 97 mmol/L (98-107); Estimated GFR-MDRD 72; Globulin 3.6 g/dL (2.4-3.5); Glucose 162 mg/dL (80-115); Potassium 4.3 mmol/L (3.5-5.1); Sodium 131 mmol/L (136-145)
[2019-07-05] MEDS: Morphine 4 MG/ML VIAL SLOW IVP PRN (11:01)
--- NOTE | 2019-07-05 14:35 | RAD ---
RIGHT HIP 2 VIEWS: HISTORY: Right hip pain. FINDINGS: Joint space appears fairly well preserved. Greater trochanter fracture of the right hip is demonstra seth. It was seen on previous CT study. It does not appear significantly changed. IMPRESSION: Greater trochanter fracture. Stable as compared to the prior examination. No signs of any new proce ss. POS: OFF
[2019-07-05] MEDS: fentaNYL 100 mcg/hour Patch TD SCH (16:18)
[2019-07-05] MEDS: Ondansetron PF 4 MG/2 ML Vial IVP PRN (16:20)
[2019-07-05] MEDS: Amlodipine 5 MG TAB PO SCH (20:28)
[2019-07-05] MEDS: Polyethylene Glycol 3350 17 GM Packet PO SCH (20:48)
[2019-07-06] MEDS: Morphine IR Tab 15 MG TAB PO PRN ×3 (02:49→12:05)
[2019-07-06] MEDS: Ondansetron ODT 4 MG TAB PO PRN ×2 (04:59→09:01)
[2019-07-06] MEDS: Glimepiride 2 MG TAB PO SCH (07:28)
[2019-07-06 08:56] VITALS: BP 127/60; TEMP 97.7
[2019-07-06] MEDS: Famotidine 20 MG TAB PO SCH (08:58)
[2019-07-06] MEDS: Docusate 100 MG CAP PO SCH (08:58)
[2019-07-06] MEDS: FLUoxetine HCl 10 MG CAP PO SCH (08:58)
[2019-07-06] MEDS: Rivaroxaban 10 MG TAB PO SCH (08:58)
--- NOTE | 2019-07-06 17:46 | PDOC.HOSPP ---
- Subjective Encounter Date: 07/05/19 Encounter Time: 12:30 Subjective: pt up in bed complains of pain to her right hip - Objective Vital Signs & Weight: Vital Signs (12 hours) Temp Pulse Resp BP Pulse Ox 07/06/19 08:50 97.7 F 100 18 127/60 94 L Weight Weight 153 lb 0.013 oz I&O: 07/05/19 07/06/19 07/07/19 06:59 06:59 06:59 Intake Total 100 Balance 100 Result Diagrams: 07/05/19 09:39 07/05/19 09:39 Additional Labs: Accuchecks 07/06/19 07/06/19 07/05/19 12:22 05:01 20:11 POC Glucose 119 H 104 156 H 07/05/19 18:36 POC Glucose 137 H Hospitalist ROS - Review of Systems Respiratory: denies: cough, dry, shortness of breath, hemoptysis, SOB with excertion, pleuritic pain, sputum, wheezing, other Cardiovascular: denies: chest pain, palpitations, orthopnea, paroxysmal noc. dyspnea, edema, light headedness, other Gastrointestinal: denies: nausea, vomiting, abdominal pain, diarrhea, constipation, melena, hematochezia, other - Exam Neck: negative: supple, symmetric, no JVD, no thyromegaly, no lymphadenopathy, no carotid bruit, JVD Heart: negative: RRR, no murmur, no gallops, no rubs, normal peripheral pulses, irregular, diminshed peripheral pulses, murmur present, II/IV, III/IV Respiratory: negative: CTAB, no wheezes, no rales, no ronchi, normal chest expansion, no tachypnea, normal percussion, rales, rhonchi, tachypneic, wheezes Gastrointestinal: soft, normal bowel sounds, tender to palpation Hosp A/P (1) Abdominal pain Code(s): R10.9 - UNSPECIFIED ABDOMINAL PAIN Status: Acute Qualifiers: Abdominal location: generalized Qualified Code(s): R10.84 - Generalized abdominal pain (2) Endometrial cancer Code(s): C54.1 - MALIGNANT NEOPLASM OF ENDOMETRIUM Status: Chronic (3) Diabetes mellitus Code(s): E11.9 - TYPE 2 DIABETES MELLITUS WITHOUT COMPLICATIONS Status: Chronic Qualifiers: Diabetes mellitus type: type 2 Diabetes mellitus bed bug exterminator insulin use: without bed bug exterminator use Diabetes mellitus complication status: without complication Qualified Code(s): E11.9 - Type 2 diabetes mellitus without complications (4) Hypertension Code(s): I10 - ESSENTIAL (PRIMARY) HYPERTENSION Status: Chronic Qualifiers: Hypertension type: essential hypertension Qualified Code(s): I10 - Essential (primary) hypertension (5) DVT of axillary vein, acute left Code(s): I82.A12 - ACUTE EMBOLISM AND THROMBOSIS OF LEFT AXILLARY VEIN Status : Acute - Plan pt's pain meds changed to long acting per oncology. she is tolerating her diet but not eating much. she is not nauseated. will get PT to see pt. will continue xarelto 07/03 pt got up with PT and started to have abd pain. i think she is depressed. Have encouraged her to get up and ambulate. 07/05 will get xray of right hip. pt to be discharged today. will ask oncology to call in pain meds.
--- NOTE | 2019-07-06 22:26 | DIS ---
DATE OF ADMISSION: 06/29/2019 DATE OF DISCHARGE: 07/06/2019 DISCHARGE DIAGNOSES: 1. Abdominal pain. 2. Endometrial cancer. 3. Diabetes. 4. Hypertension. 5. Deep venous thrombosis of axillary. HOSPITAL COURSE: The patient is a 64-year-old female, who initially presented to the hospital on 06/29 with complaints of intractable abdominal pain and severe constipation. She has been on pain medications and had diffuse abdominal pain. She does have a history of endometrial carcinoma, as well as necrotic lymphadenopathy which was recently worsened by constipation. She was initially given some enemas and also her pain medications were adjusted. She was also seen by Oncology. She is on Xarelto, which was continued. The patient did have a CT of abdomen and pelvis, which indicated interval enlargement of conglomeration of necrotic lymphadenopathy in the region of the lexi hepatis in the peripancreatic location with overlying stable aortocaval lymphadenopathy. She also has stable hypodense lesions in the chest and faint enhancement in the anterior dome of the liver. Her medications were adjusted in pain and she continued to improve. She did complain of right hip pain and we went ahead and did a right hip x-ray, which indicated that she does have a greater trochanteric fracture which was stable from prior exam. I did review the records, which indicated that she did have this. In her previous admission, she was evaluated by Orthopedics and recommended no intervention. I have told her to follow up with Orthopedics next week. HOME MEDICATIONS: Home medications will be as of the followin. Colace 100 mg b.i.d. 2. Morphine IR 50 mg q.4 hours p.r.n. 3. Zofran 4 mg q.6 hours p.r.n. 4. Fentanyl 100 mcg daily. 5. Glimepiride 4 mg daily. 6. MiraLAX 17 g p.o. at bedtime. 7. Xarelto 20 mg daily. 8. Norvasc 5 mg at bedtime. 9. Prozac 10 mg daily. 10. Atorvastatin 40 mg at bedtime. 11. Megestrol 40 mg b.i.d. 12. Multivitamin one p.o. daily. 13. Pepcid 20 mg p.o. at bedtime. PHYSICAL EXAMINATION: VITAL SIGNS: Temperature of 97.7, 100, 18, 94% on room air, 127/60. GENERAL: She is awake, alert, and oriented x3. Does not appear in distress. CV: S1, S2 present. No murmurs, rubs, or gallops. ABDOMEN: Soft and nontender. Bowel sounds are present x2. EXTREMITIES: No edema. Again, the patient will be discharged home. She will follow up with her primary and also Oncology. Job ID: [id number]
--- NOTE | 2019-07-08 06:52 | PQF ---
ALMODOVARDAVID QUINTANA IVON LOTT [id number] CLINICAL DOCUMENTATION CLARIFICATION FORM: POST DISCHARGE Addendum to original discharge summary date: ____ Late entry note date: __ DATE:07-08-2019 ATTN:Ivon Greene Please exercise your independent, professional judgment in responding to the clarification form. Clinical indicators are provided on the bottom of this form for your review Can you please specify the etiology of patients abdominal pain. Please check the appropriate box. [ ] Constipation [ ] Endometrial carcinoma [ x ] abdominal pain unspecified [ ] other diagnosis please specify: [ ] unable to determine Present on Admission (POA): [ x ] Yes [ ] No [ ] Unable to determine For continuity of documentation, please document condition throughout progress notes and discharge summary. Thank You. CLINICAL INDICATORS: -H&P p3 06/29 Dr. James Abdominal pain, diffuse, intractable, not controlled with her home regimen, likely related with underlyinf endometrial carcinoma as well as necrotic lymphadenopathyand recently worsened by constipation -Consut p2 06/30 Dr. Chavira severe constipation secondary to pain medications -Consut p1 06/30 Dr. Chavira with stage 4 endometrial adenocarcinoma. She had progression in April of 2019 -DS p1 07/06 Dr. Lott intractable abdominal pain and severe constipation. She does have a history of endometrial carcinoma, as well as necrotic lymphadenopathy RISK FACTORS: Hospitalist PN 07/02 Dr. Lott-fecal impaction DS 07/06 Dr. Lott-endometrial cancer TREATMENTS: Consut 06/30 Dr. Chavira-start bowel regimen including Miralax and a stool softener Consut 06/30 Dr. Chavira-Oncology Consult [facility] (This form is maintained as a part of the permanent medical record) 2014 [employer]. All Rights Reserved Janett [email or web address] [not provided] MTDD
== END 2019-07-06 14:30 | disposition home or self-care (01) | DRG 392 ==
LOC: ERS 07:41 → OBSVTOIN 12:20 → ONC 12:20
PROVIDERS: ADMIT Internal Medicine; ATTEND Internal Medicine
PROC: 3E0234Z Introduction of Serum, Toxoid and Vaccine into Muscle, Percutaneous Approach (ICD-10-PCS; principal; 2019-07-01)
DX: R10.9 Unspecified abdominal pain (principal); I82.A12 Acute embolism and thrombosis of left axillary vein; M84.451A Pathological fracture, right femur, initial encounter for fracture; E87.1 Hypo-osmolality and hyponatremia; K59.03 Drug induced constipation; C54.1 Malignant neoplasm of endometrium; E11.9 Type 2 diabetes mellitus without complications; E78.5 Hyperlipidemia, unspecified; I10 Essential (primary) hypertension; R59.0 Localized enlarged lymph nodes; Z99.81 Dependence on supplemental oxygen; Z23 Encounter for immunization; Z88.0 Allergy status to penicillin; Z88.5 Allergy status to narcotic agent; Z88.8 Allergy status to other drugs, medicaments and biological substances; Z79.84 Long term (current) use of oral hypoglycemic drugs; Z79.01 Long term (current) use of anticoagulants; Z79.899 Other long term (current) drug therapy
CPT/HCPCS: 36415; 36416; 74177; 80048; 80053; 81003; 81015; 83690; 85025; 96361; 96374; 96375; 96376; J0360; J1642; J2270; J2405; J7050; J9271; Q0162; Q9966

== ENCOUNTER 2019-08-13 10:46 | Day surgery (SDC) | payer OTHER ==
[2019-08-13] MEDS ORDERED: Acetaminophen 500 MG TAB PO SCH (11:30)
[2019-08-13] MEDS ORDERED: diphenhydrAMINE 25 MG CAP PO SCH (11:30)
[2019-08-13 14:17] VITALS: BP 123/60; TEMP 98.1
== END 2019-08-13 14:17 | disposition home or self-care (01) ==
LOC: ONC/OP 10:46
PROVIDERS: ATTEND Internal Medicine Hematology & Oncology
PROC: 30233R1 Transfusion of Nonautologous Platelets into Peripheral Vein, Percutaneous Approach (ICD-10-PCS; principal; 2019-08-13)
PROC: 30233N1 Transfusion of Nonautologous Red Blood Cells into Peripheral Vein, Percutaneous Approach (ICD-10-PCS; principal; 2019-08-13)
DX: D64.9 Anemia, unspecified (principal); D69.6 Thrombocytopenia, unspecified
CPT/HCPCS: 36430; 86850; 86900; 86901; P9016; Q0163

== ENCOUNTER 2019-09-20 10:40 | Outpatient (CLI) | payer OTHER ==
--- NOTE | 2019-09-20 12:25 | CT ---
EXAM: CT chest, abdomen, and pelvis with IV contrast: HISTORY: Neoplasm of endometrium. 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 COMPARISON: CT chest, abdomen, and pelvis on 05/25/[address] abdomen and pelvis on 06/29/2019. FINDINGS: CT THORAX: Lungs: Previously noted pleural-based 5 mm nodule is again seen in the superior segment right lower l obe. No additional pulmonary nodule or mass is seen. Pleura: No pleural effusion. Lymph nodes: No lymphadenopathy. Mediastinum: A right internal jugular vein Mediport catheter remains in place with tip in the proxima l SVC. Minimal vascular calcifications are seen in the aortic arch. Thoracic aorta is normal in caliber Chest wall: No abnormalities CT ABDOMEN AND PELVIS: Liver: Stable hypodense lesion anterior aspect dome of the liver is again seen and stable when compar ed to prior studies. No new hepatic lesion is seen. Gallbladder: Within normal limits. Pancreas: Within normal limits. Spleen: Within normal limits. Adrenal glands: Within normal limits. Kidneys: There is a stable hypodense lesion inferior pole left kidney which is difficult to character ize. This cannot be characterized as a cyst on this exam. Urinary Bladder: Mostly decompressed. Reproductive organs: Uterus is surgically absent. Bowel: There is mild thickening of the second portion of the duodenum which is probably reactive seco ndary to the masslike density in the periportal region and peripancreatic location with adjacent mild stranding present. Adenopathy:There has been interval enlargement of an aortocaval lymph node present measuring 1.8 cm i n maximal dimensions; this lymph node may possibly represent conglomeration of lymph nodes measures 3.1 cm x 2.7 cm. There is been slight interval enlargement of a precaval lymph node just anterior to the lowermost IVC the level of the common iliac veins which measures 1 cm in short axis dimension with previous measurement of 0.6 cm. Additional mildly prominent aortocaval lymph nodes are also seen . Peritoneum/retroperitoneum: Previously described masslike area of heterogeneity in the peripancreatic and periportal location is again identified, but this heterogeneous mass has increased in size. This could be related to neoplastic process in this region versus conglomeration of necrotic lymphade nopathy. This masslike structure on today's examination measures approximately 9.2 cm craniocaudal x7.4 cm transverse x6.8 cm AP with previous measurement of 4.6 cm craniocaudal x2.5 cm transverse 2.5 cm AP. Abdominal wall: No abnormalities seen. Osseous structures: Mild degenerative changes are seen in the spine. There is a stable nonunion fract ure involving the right greater trochanter. This may represent pathological fracture. No new suspicious lytic or sclerotic osseous lesions are identified. IMPRESSION: 1. Interval increase in heterogeneous masslike structure in the region of the lexi hepatis and perip ancreatic location. This again could be related to interval increase in conglomeration of necrotic lymph nodes. Other neoplastic process is a possibility. This masslike structure does extend into the aortocaval region and appears to surround the left renal vein, and appears to result in mild extrinsic compression and narrowing of the left renal vein. There is also mass effect on the splenic and portal veins with greater extrinsic mass effect in the region of the portal confluence. There is also finding likely due to thickening of the adjacent duodenum which is probably reactive in origi n. No bowel obstruction is appreciated. 2. Aortocaval lymphadenopathy with interval increase in size and number of lymph nodes. 3. Stable hypodense lesion inferior pole left kidney. This cannot be characterized as a cyst. 4. Stable fracture right greater trochanter.
[2019-09-20] MEDS ORDERED: Iopamidol-370 76% 500 ML 1 ML ONE (15:13)
== END 2019-09-20 10:41 | disposition home or self-care (01) ==
LOC: BICCT 10:40
PROVIDERS: ATTEND Internal Medicine Hematology & Oncology
DX: C54.1 Malignant neoplasm of endometrium (principal); C77.0 Secondary and unspecified malignant neoplasm of lymph nodes of head, face and neck; S72.111A Displaced fracture of greater trochanter of right femur, initial encounter for closed fracture; R59.0 Localized enlarged lymph nodes; N28.9 Disorder of kidney and ureter, unspecified
CPT/HCPCS: 71260; 74177; Q9967

== ENCOUNTER 2019-10-07 10:24 | Day surgery (SDC) | payer OTHER ==
[2019-10-07] MEDS ORDERED: Sodium Chloride 0.9% 20 ML ONE (10:31)
[2019-10-07] MEDS ORDERED: Acetaminophen 500 MG TAB PO PRN (11:35)
[2019-10-07] MEDS ORDERED: diphenhydrAMINE 25 MG CAP PO PRN (11:36)
[2019-10-07 16:37] VITALS: BP 128/58; TEMP 98.4
== END 2019-10-07 16:42 | disposition home or self-care (01) ==
LOC: ONC/OP 10:24
PROVIDERS: ATTEND Internal Medicine Hematology & Oncology
PROC: 30233N1 Transfusion of Nonautologous Red Blood Cells into Peripheral Vein, Percutaneous Approach (ICD-10-PCS; principal; 2019-10-07)
DX: D64.9 Anemia, unspecified (principal); D69.6 Thrombocytopenia, unspecified
CPT/HCPCS: 36430; 86850; 86900; 86901; J1642; P9016; Q0163

== ENCOUNTER 2019-10-18 11:18 | Emergency (ER) | payer OTHER ==
[2019-10-18 14:00] LABS: #Eosinphils 0.1 thou/uL (0.0-0.7); #Lymphocytes 2.1 thou/uL (1.20-3.40); #Monocytes 0.7 thou/uL (0.11-0.59); #Neutrophils 6.8 thou/uL (1.40-6.50); %Basophils 0.4 % (0.0-1.0); %Lymphocytes 21.6 % (21.0-51.0); %Monocytes 7.4 % (0.0-10.0); %Neutrophils 69.6 % (42.0-75.0); Hemoglobin 9.6 g/dL (12.0-16.0); Mean Corpuscular HGB CONC 31.6 g/dL (32.0-36.0); Mean Corpuscular Hemoglobin 26.7 pg (27.0-31.0); Mean Corpuscular Volume 84.4 fL (78.0-98.0); Platelet Count 289 thou/uL (130-400); Red Blood Cell (RBC) Count 3.59 mill/uL (4.20-5.40); White Blood Cell (WBC) Count 9.7 thou/uL (4.8-10.8)
[2019-10-18 14:25] LABS: ALT (SGPT) 34 U/L (8-55); AST (SGOT) 37 U/L (5-34); Albumin 3.6 g/dL (3.4-4.8); Alkaline Phosphatase 215 U/L (40-110); Anion Gap 13 mmol/L (10-20); BUN (Urea Nitrogen) 15 mg/dL (9.8-20.1); Bilirubin, Total 0.7 mg/dL (0.2-1.2); Calc. Creatinine Clearance 0 mL/min (70-130); Calcium 10.6 mg/dL (7.8-10.44); Carbon Dioxide 25 mmol/L (23-31); Chloride 98 mmol/L (98-107); Estimated GFR-MDRD 69; Globulin 4.1 g/dL (2.4-3.5); Glucose 118 mg/dL (80-115); Potassium 4.1 mmol/L (3.5-5.1); Protein, Total 7.7 g/dL (6.0-8.3); Sodium 132 mmol/L (136-145)
[2019-10-18] MEDS ORDERED: Morphine 4 MG/ML VIAL ONE (14:29)
[2019-10-18] MEDS ORDERED: Ondansetron PF 4 MG/2 ML Vial ONE (14:29)
[2019-10-18] MEDS ORDERED: Morphine 2 MG/ML SYRINGE ONE (14:30)
[2019-10-18 16:58] LABS: Bacteria/HPF None Seen HPF (None Seen); Bilirubin Negative (Negative); Blood, Urine Negative (Negative); Clarity Clear (Clear); Glucose, Urine (Dipstick) Normal (Negative); Leukocyte 75 Leu/uL (Negative); Mucous/LPF 2+ LPF (<2+); Nitrite Negative (Negative); Protein, Urine (Dipstick) 20 mg/dL (Neg-Trace); RBC/HPF 0-3 HPF (0-3); Renal Epithelial 0-3 HPF (None Seen); Squamous Epithelial 0-3 HPF (0-3)
== END 2019-10-18 17:21 | disposition home or self-care (01) ==
LOC: ERS 11:18
DX: N39.0 Urinary tract infection, site not specified (principal); E11.9 Type 2 diabetes mellitus without complications; I10 Essential (primary) hypertension; F41.9 Anxiety disorder, unspecified; Z79.899 Other long term (current) drug therapy; Z79.891 Long term (current) use of opiate analgesic; Z79.84 Long term (current) use of oral hypoglycemic drugs
CPT/HCPCS: 80053; 81003; 81015; 85025; 87086; 93005; 96361; 96374; 96375; J2270; J2405

== ENCOUNTER 2019-11-02 10:17 | Outpatient (CLI) | payer OTHER ==
--- NOTE | 2019-11-02 11:29 | CT ---
CHEST CT WITH CONTRAST ABDOMEN CT WITH CONTRAST PELVIC CT WITH CONTRAST: HISTORY: Endometrial cancer. Secondary nonspecific malignant neoplasm of lymph nodes of the head, face and nec k. CORRELATION: None. COMPARISON: 09/20/2019, 06/29/2019. FINDINGS: Chest CT: Mediastinum: No mass, lymphadenopathy or hematoma. Aorta: Normal caliber thoracic and abdominal aorta. No periaortic fat stranding. Heart: Normal heart size. No significant pericardial fluid. Trachea and central bronchi: Patent. Pleural spaces: Small bilateral pleural effusions. Right lung: Dependent atelectatic change. No suspicious masses, nodules or consolidation. Nonspecific pleural-based nodule measures 0.5 cm and is unchanged. Left lung:Dependent atelectatic change. No suspicious masses, nodules or consolidation. Pneumothorax: None. Abdomen CT: Gallbladder: Unremarkable. Portal vein: Patent. Periportal edema. Liver: Redemonstration of a heterogeneous mass occupying the lexi hepatis as well as adjacent to the left hepatic lobe. Currently, this abnormal mass measures 10.3 cm mediolateral by 6.6 cm anterior posterior by 12.4 cm craniocaudal. In September of 2019, this mass measured 7.9 x 6.8 x 9.2 cm. The de gree of involvement adjacent to the left hepatic lobe has has progressed since the previous examination. Hypodensity in the hepatic dome best demonstrated on coronal image #20 is essentially un changed. Spleen: Appropriate enhancement. Pancreas: Appropriate enhancement. Adrenal glands: Appropriate enhancement. Lymphadenopathy: There is evidence of periaorta l/aortocaval lymphadenopathy. Lymph node currently me asures 2.7 x 2.1 cm and 2.8 x 2.7 cm. There has been interval increase. Previously, this lymph node in the aortocaval region measured 1.7 x 2.5 cm. Second lymph node measures 1.9 x 1.7 cm. Kidneys: Symmetric enhancement. Bilaterally no obstructive uropathy. Left renal hypodensities less ev ident on the current exam. Mesentery: There is evidence of mesenteric free fluid along with mesenteric stranding. No free air. Alimentary canal: Normal caliber small bowel loops. Unremarkable ileocecal junction. Normal caliber a ppendix. Scattered fecal material in a nondistended, nondilated colon. Pelvis CT: Surgically absent uterus. Unremarkable urinary bladder. No pelvic mass, lymphadenopathy or free air. There is complex fluid in the pelvis with attenuation coefficient of 20 Hounsfield units. Osseous structures:Redemonstration of a pathologic fracture in the right greater trochanter. Addition al pathologic fractures are not appreciated. Pseudoarthrosis of the inferiormost lumbar spine vertebral body with the adjacent sacral ala. IMPRESSION: 1. Interval progression of a conglomeration of necrotic lymph nodes in the lexi hepatis and peripanc reatic region. There is extension into the left perihepatic region. 2. Interval enlargement of necrotic lymph nodes in the periaortic and aortocaval region. Transcribed Date/Time: 11/02/2019 11:44 AM
[2019-11-02] MEDS ORDERED: Iopamidol-370 76% 500 ML 1 ML ONE (13:28)
== END 2019-11-02 10:18 | disposition home or self-care (01) ==
LOC: BICCT 10:17
PROVIDERS: ATTEND Internal Medicine Hematology & Oncology
DX: C77.0 Secondary and unspecified malignant neoplasm of lymph nodes of head, face and neck (principal); C54.1 Malignant neoplasm of endometrium; R59.0 Localized enlarged lymph nodes
CPT/HCPCS: 71260; 74177; Q9967

== ENCOUNTER 2019-11-04 15:47 | Observation (INO) | payer OTHER ==
[2019-11-04 16:46] VITALS: BMI 24.9
[2019-11-04] MEDS ORDERED: Acetaminophen 500 MG TAB PO PRN (17:17)
[2019-11-04] MEDS ORDERED: Loratadine 10 MG TAB PO PRN (17:17)
[2019-11-04] MEDS ORDERED: Ondansetron ODT 4 MG TAB PO PRN (17:17)
[2019-11-04] MEDS ORDERED: Morphine IR Tab 15 MG TAB PO PRN (17:17)
[2019-11-04] MEDS ORDERED: Ondansetron PF 4 MG/2 ML Vial IVP SCH (17:45)
[2019-11-04] MEDS: Sodium Chloride 0.9% 1,000 ML IV SCH (18:18)
--- NOTE | 2019-11-04 18:43 | HP ---
PRIMARY CARE PROVIDER: Out of town physician. CHIEF COMPLAINT: Stage IV endometrial adenocarcinoma. HISTORY OF PRESENT ILLNESS: Ms. Louis is a pleasant 64-year-old lady, who was seen at [facility] on November 04, 2019, after she was sent to the hospital from [facility]. She was diagnosed with endometrial adenocarcinoma in 2016. She was treated with surgery and vaginal brachytherapy. Subsequently, she was found to have multifocal metastatic disease. She was treated with carboplatin and Avastin, which she completed in March 2019. In May 2019, she was found to have progression of her disease. In September, she was treated with Keytruda. She had a CT scan of the chest, abdomen, and pelvis on November 02, 2019, which showed interval progression of her conglomeration of necrotic lymph nodes in the lexi hepatis and peripancreatic region. There is extension into the left perihepatic region. She had interval enlargement of necrotic lymph nodes in the periaortic and aortocaval region. She was seen in the Cancer Clinic earlier today. After discussion with Oncology team, she has opted for hospice at home. However, hospice could not be arranged from the clinic because she is not from this area. She is being admitted to the hospital to facilitate hospice arrangement. She denies any chest pain. She reports intense nausea. She denies any fevers. She thinks she may have abdominal pain, but is not sure as to how to characterize it. REVIEW OF SYSTEMS: All systems reviewed and found to be negative except for the pertinent positives mentioned above. 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 PAST SURGICAL HISTORY: D and C, lumpectomy, and hysterectomy. FAMILY HISTORY: Father with melanoma and multiple myeloma. SOCIAL HISTORY: No history of tobacco use, alcohol use, or recreational drug use. ALLERGIES: NO KNOWN DRUG ALLERGIES. HOME MEDICATIONS: 1. Tylenol Extra Strength p.r.n. 2. Norvasc 5 mg at bedtime. 3. Atorvastatin 40 mg at bedtime. 4. Pepcid 20 mg at bedtime. 5. Glimepiride 4 mg daily. 6. Loratadine 10 mg daily. 7. Megace 40 mg 2 times a day. 8. Multivitamins one tablet daily. 9. MiraLAX 17 g at bedtime. 10. Xarelto 20 mg daily. 11. Zofran p.r.n. 12. Docusate 100 mg 2 times a day. 13. Fentanyl 100 mcg patch every 72 hours. 14. Prozac 10 mg daily. 15. Morphine IR 15 mg every 4 hours as needed. PHYSICAL EXAMINATION: GENERAL: Ms. Louis is awake and alert, not in acute distress. VITAL SIGNS: Blood pressure is 126/58, pulse 86, respiratory rate 18, and oxygen saturation 96% on room air. She is afebrile. EYES: No scleral icterus. No conjunctival pallor. ENT: Moist mucosal membranes. No oropharyngeal erythema or exudates. NECK: Supple and nontender. Trachea is midline. RESPIRATORY: Accessory muscles of breathing are not active. Chest wall movements are symmetric bilaterally. Lungs are clear to auscultation without wheeze, rhonchi, or crepitations. CARDIOVASCULAR: S1 and S2 are heard, regular. Peripheral pulses palpable. ABDOMEN: Soft and nontender. Bowel sounds are heard. NEUROLOGIC: Cranial nerves 2 through 12 are intact. MUSCULOSKELETAL: Moving all 4 extremities. PSYCHIATRIC: Normal mood. Normal affect. The patient is oriented to person, place, and time. LABORATORY DATA: Ms. Louis labs and investigations were reviewed. She had a CT scan of chest, abdomen, and pelvis on November 02, 2019, results as described above. ASSESSMENT AND PLAN: Ms. Louis is a pleasant 64-year-old lady, who was seen at [facility] on November 04, 2019, following transfer from [facility]. Her problem list includes: 1. Nausea: Ms. Louis is currently nauseous. She will receive Zofran as needed. 2. Metastatic adenocarcinoma of the uterus: Ms. Louis has metastatic adenocarcinoma of the uterus with recent progression. We will admit her to the hospital and consult Case Management to arrange for hospice at home. 3. History of deep venous thrombosis: We will continue rivaroxaban for now. 4. Diabetes mellitus: We will continue her current diabetes medications. 5. Pain management with fentanyl patch and morphine. Many thanks for allowing me to participate in your patient's care. Please feel free to contact me with any questions or concerns. LEVEL OF RISK: Moderate. LEVEL OF COMPLEXITY: Moderate. Job ID: [id number]
[2019-11-04] MEDS: Morphine IR Tab 15 MG TAB PO PRN (20:11)
[2019-11-04] MEDS: Docusate 100 MG CAP PO SCH (20:12)
[2019-11-04] MEDS ORDERED: Polyethylene Glycol 3350 17 GM Packet PO SCH (21:00)
[2019-11-04] MEDS ORDERED: Amlodipine 5 MG TAB PO SCH (21:00)
[2019-11-04] MEDS ORDERED: Famotidine 20 MG TAB PO SCH (21:00)
[2019-11-04] MEDS ORDERED: Atorvastatin Calcium 40 MG TAB PO SCH (21:00)
[2019-11-04] MEDS: Megestrol Acetate 40 MG TAB PO SCH (21:03)
[2019-11-05] MEDS: Morphine IR Tab 15 MG TAB PO PRN ×4 (00:24→12:52)
[2019-11-05] MEDS: Ondansetron PF 4 MG/2 ML Vial IVP PRN ×3 (00:24→12:52)
[2019-11-05 03:57] VITALS: TEMP 98.3
[2019-11-05] MEDS: Sodium Chloride 0.9% 1,000 ML IV SCH (06:23)
[2019-11-05] MEDS ORDERED: Glimepiride 2 MG TAB PO SCH (07:30)
[2019-11-05] MEDS ORDERED: FLUoxetine HCl 10 MG CAP PO SCH (09:00)
[2019-11-05] MEDS ORDERED: fentaNYL 100 mcg/hour Patch TD SCH (09:00)
[2019-11-05] MEDS ORDERED: Multivit, Therapeutic 1 TAB PO SCH (09:00)
[2019-11-05] MEDS ORDERED: Rivaroxaban 10 MG TAB PO SCH (09:00)
[2019-11-05] MEDS: Megestrol Acetate 40 MG TAB PO SCH (09:02)
[2019-11-05] MEDS: Docusate 100 MG CAP PO SCH (09:03)
[2019-11-05 14:22] VITALS: BP 115/65
--- NOTE | 2019-11-06 02:15 | DIS ---
DATE OF ADMISSION: 11/04/2019 DATE OF DISCHARGE: 11/05/2019 PRIMARY CARE PROVIDER: Unknown. DISCHARGE DIAGNOSES: 1. Nausea. 2. Metastatic uterine cancer. CONDITION OF PATIENT ON THE DAY OF DISCHARGE: Stable. I assessed Ms. Louis on the day of discharge. She denies any chest pain or shortness of breath. Vital signs are stable. S1 and S2 are heard, regular. Lungs are clear to auscultation bilaterally. DISCHARGE MEDICATIONS: No change was made to her pre-admission home medications as dictated in my history and physical note dated November 04, 2019. POST-ACUTE CARE FOLLOWUP: With primary care provider in 3 days. HOSPITAL COURSE: Ms. Louis is a pleasant 64-year-old lady, who was admitted to [facility] on November 04, 2019 for nausea and metastatic uterine cancer, which has recently progressed. Nausea improved with medications. She was evaluated by [facility] and is being discharged for hospice care at home. DIET: Regular. ACTIVITY: Ad betty. Thank you for allowing me to participate in your patient's care. Please feel free to contact me with any questions or concerns. DISCHARGE DESTINATION: Home with hospice care at home. Job ID: [id number]
[2019-11-07] MEDS ORDERED: fentaNYL 100 mcg/hour Patch TD SCH (09:30)
== END 2019-11-05 16:30 | disposition home or self-care (01) ==
LOC: UNDOADMOB 15:47 → SURG A 15:47 → ONC 15:55
PROVIDERS: ADMIT Internal Medicine; ATTEND Internal Medicine
DX: R11.0 Nausea (principal); C79.82 Secondary malignant neoplasm of genital organs; C54.1 Malignant neoplasm of endometrium; E11.9 Type 2 diabetes mellitus without complications; I10 Essential (primary) hypertension; E78.5 Hyperlipidemia, unspecified; D64.9 Anemia, unspecified; Z79.01 Long term (current) use of anticoagulants; Z79.84 Long term (current) use of oral hypoglycemic drugs; Z79.899 Other long term (current) drug therapy
CPT/HCPCS: 96361; 96374; 96376; G0378; J1642; J2405; S0179